=== PATIENT | male | born 1965 | race Caucasian/White ===

== ENCOUNTER 2021-12-16 06:27 | Outpatient (CLI) | payer OTHER, SELFPAY ==
--- NOTE | 2021-12-16 06:39 | MRI_ITS ---
STUDY: MRI LEFT SHOULDER REASON FOR EXAM: Decreased range of motion of the left shoulder after left shoulder injury over a month ago. TECHNIQUE: Standardized fat and water weighted pulse sequences were obtained in all 3 orthogonal planes. COMPARISON: None. FINDINGS: There is mild supraspinatus tendinosis and a small non retracted full-thickness tear of the distal supraspinatus tendon at the greater tuberosity insertion (fat-suppressed T2 coronal image 7) measuring 0.2 cm in length. There is infraspinatus tendinosis (T2 sagittal image 15) without discrete tendon tear. Normal subscapularis tendon. Normal teres minor tendon. Normal supraspinatus muscle. Normal infraspinatus muscle. Normal subscapularis muscle. Normal teres minor muscle. There is a very small glenohumeral joint effusion. Normal humeral head and visualized proximal humerus. Normal biceps labral complex. Normal intracapsular long biceps tendon. Normal labrum. Normal capsulo- ligamentous complex. There is mild acromioclavicular arthrosis without substantial undersurface osteophytes (T2 sagittal image 6). There is a Type I morphology (flat undersurface), with a neutral orientation. There is a small volume of subacromial-subdeltoid bursal fluid. Normal visualized coracohumeral and coracoacromial ligaments. Normal deltoid muscle. Normal trapezius muscle. MRI/Upper Ext Joint Only(Routine) IMPRESSION: Small full-thickness tear and mild tendinosis of the supraspinatus tendon. Infraspinatus tendinosis. Mild acromioclavicular arthrosis. Glenohumeral joint fluid communicating with the subacromial-subdeltoid bursa. Electronically Signed: Troy Jorge MD at 8:31 EDT ,
== END 2021-12-16 23:59 | disposition home or self-care (01) ==
LOC: MRI 06:32
PROVIDERS: PCP Family Medicine; Visit Provider Family Medicine
DX: S40.012A Contusion of left shoulder, initial encounter (principal); S43.402A Unspecified sprain of left shoulder joint, initial encounter; S33.5XXA Sprain of ligaments of lumbar spine, initial encounter; S20.224A Contusion of middle back wall of thorax, initial encounter
CPT/HCPCS: 73221

== ENCOUNTER 2023-11-02 13:41 | Emergency (ER) | payer BC, SELFPAY ==
[2023-11-02] VITALS (41 sets, daily range): BP systolic 111–154; BP diastolic 61–128; PULSE 63–97; RESP 10–23; TEMP 36.4; O2SAT 93–100; BMI 34.0
--- NOTE | 2023-11-02 14:10 | RAD_ITS ---
STUDY: X-RAY CHEST REASON FOR EXAM: Male, 58 years old. Chest pain TECHNIQUE: Single AP portable view of the chest. COMPARISON: Comparison is made with prior study dated November 04, 2014. FINDINGS: EKG electrodes are seen. The lungs are clear and expanded. There is no demonstrated pleural abnormality. Normal size heart. Normal mediastinum and dwayne. Normal visualized pulmonary arteries. Normal visualized aortic arch and descending thoracic aorta. There are diffuse degenerative changes of the visualized thoracic spine. Normal visualized ribs, clavicles, and shoulders. There is no demonstrated abnormality of the visualized soft tissue structures of the upper abdomen. RAD/Chest 1 View (Portable) IMPRESSION: No acute abnormality is seen. Stable examination. Electronically Signed: Kumar Finch MD at 14:30 EST ,
[2023-11-02 14:17] LABS: Absolute Lymphocyte Count 1.24 X10^3/uL (0.83-4.51); Absolute Neutrophil Count 3.8 X10^3/uL (2.0-7.7); Basophil# 0.02 X10^3/uL; Basophil% 0.4 % (0-1); Eosinophil# 0.11 X10^3/uL; Eosinophils% 1.9 % (0-5); Hemoglobin 12.5 g/dL (13.0-16.5); Lymphocyte # 1.24 X10^3/ul (0.83-4.51); Lymphocyte % 21.9 % (19-41); Mean Corp Hgb Conc 34.7 g/dL (32-36); Mean Corpuscular Hgb 31.1 pg (27.0-32.0); Mean Corpuscular Volume 89.6 fL (80-94); Mean Platelet Vol. 9.4 fl (6.2-12.0); Monocyte# 0.43 X10^3/uL; Monocyte% 7.6 % (0-10); NRBC Flagged by Analyzer 0 % (0-5); Neutrophil # 3.84 X10^3/uL (2.7-7.7); Platelet Count 185 K/mm3 (150-450); Red Blood Count 4.02 M/mm3 (4.6-6.2); White Blood Count 5.7 K/mm3 (4.4-11.0)
--- NOTE | 2023-11-02 14:19 | ED.VIS.CHEST ---
HPI History of Present Illness Chief Complaint: Chest Pain Narrative Narrative: 58-year-old male presenting with chest pain. States he has a history of [place], cardiac stents, hyperlipidemia. He states that today while he was at work he took his lunch break at about 1230 in the [employer] truck and started to feel retrosternal chest pressure. He states he had not eaten anything and he was only sipping water. He states that he took a nitroglycerin pill which did not help. He states he took another and then walked over to his bosses office with that. He states he was not feeling well. States EMS was called he was given nitroglycerin and aspirin and route. Patient states that this feels like his previous AZ. He initially stated his pain was down to a 1/10 when I saw him but then he said it wavers between 3/10 and 10/04. He states it is not a chest pressure or chest tightness. He states it is not a sharp pain but he cannot describe what kind of pain it is. He states he was sweaty and nauseous when the pain initiated but is not sweaty and nauseous now. Patient states his primary care md is at [place] and he states he had a cardiac catheterization in June which showed 60% blockage of something but is not sure what it is. He states he can medically manage at did not do another cardiac stent [facility] Home Medications Sulfasal-Azine 500 mg PO BID 04/23/14 [History Last Taken Unknown] aspirin 81 mg chewable tablet 81 mg PO DAILY HEART HEALTH 04/23/14 [History Last Taken Unknown] chlordiazepoxide-clidinium 5 mg-2.5 mg capsule 2.5 mg PO 4X/DAY STOMACH/INTESTINES 04/23/14 [History Last Taken Unknown] citalopram 20 mg tablet 40 mg PO DAILY DEPRESSION 04/23/14 [History Last Taken Unknown] clobetasol 0.05 % topical ointment 1 applic topical BID SWELLING/ITCHING 04/23/14 [History Last Taken Unknown] diclofenac sodium 75 mg tablet,delayed release 75 mg PO BIDCM INFLAMMATION 04/23/14 [History Last Taken Unknown] omeprazole 20 mg capsule,delayed release 20 mg PO BID GERD 04/23/14 [History Last Taken Unknown] rosuvastatin 20 mg tablet (Crestor) 20 mg PO QHS CHOLESTEROL 07/30/14 [History Last Taken Unknown] ferrous sulfate 325 mg (65 mg iron) tablet (Iron (ferrous sulfate)) 65 mg PO DAILY SUPPLEMENT 07/04/14 [History Last Taken Unknown] metoprolol succinate 25 mg tablet,extended release 24 hr 12.5 mg PO DAILY BLOOD PRESSURE 11/02/23 [History Last Taken Unknown] nitroglycerin 0.4 mg sublingual tablet 0.4 mg sublingual Q5M PRN CHEST PAIN 11/02/23 [History Last Taken Unknown] pantoprazole 40 mg tablet,delayed release 40 mg PO DAILY GERD 11/02/23 [History Last Taken Unknown] pramipexole 0.5 mg tablet 0.5 mg PO DAILY [place] 11/02/23 [History Last Taken Unknown] Allergy/AdvReac Type Severity Reaction Status Date / Time midazolam [From Versed] AdvReac Mild hiccups Verified 11/02/23 13:41 Social History Smoking Status: Never smoker ROS ROS ED Constitutional Constitutional ED: Reports sweats; Denies chills or fever(s) Eyes Eyes: Denies blurry vision or change in vision ENT ENT ED: Denies ear pain or sore throat Cardiovascular Cardiovascular: Reports chest pain; Denies palpitations or racing heartbeat Respiratory/Chest Respiratory/Chest: Reports dyspnea; Denies cough or sputum Gastrointestinal Gastrointestinal: Denies abdominal pain, constipation, diarrhea, nausea or vomiting Genitourinary Genitourinary ED: Denies dysuria, hematuria or urinary frequency Musculoskeletal Musculoskeletal: Denies arthralgias, myalgias or neck pain Integumentary Denies abscess, Abrasions or rash Neurologic Neurologic: Denies headache(s), paresthesias or weakness Psychiatric Psychiatric: Denies anxiety, depression, suicidal ideation or suicidal thoughts Endocrine Endocrinology: Denies polydipsia or polyuria EXAM Physical Exam Const Vital Signs: 11/02/23 13:42 11/02/23 13:44 11/02/23 14:08 Temperature 97.5 F L Temperature Source Temporal Pulse Rate 74 Respiratory Rate 12 Respiratory Effort Normal Non-Labored Blood Pressure 145/128 H Blood Pressure Mean 133 Pulse Ox 96 Oxygen Delivery Method Room Air Room Air 11/02/23 14:49 11/02/23 13:59 11/02/23 14:00 Temperature Temperature Source Pulse Rate 72 75 79 Respiratory Rate 10 L 13 14 Respiratory Effort Blood Pressure 142/81 H 126/79 H Blood Pressure Mean 101 94 Pulse Ox 96 97 95 Oxygen Delivery Method Room Air 11/02/23 14:10 11/02/23 14:15 11/02/23 14:20 Temperature Temperature Source Pulse Rate 82 74 78 Respiratory Rate 17 14 16 Respiratory Effort Blood Pressure 145/91 H Blood Pressure Mean 107 Pulse Ox 97 95 96 Oxygen Delivery Method 11/02/23 14:30 11/02/23 14:40 11/02/23 14:45 Temperature Temperature Source Pulse Rate 74 74 79 Respiratory Rate 14 12 12 Respiratory Effort Blood Pressure 128/86 H 142/81 H Blood Pressure Mean 98 98 Pulse Ox 97 98 96 Oxygen Delivery Method 11/02/23 14:50 11/02/23 15:00 11/02/23 15:10 Temperature Temperature Source Pulse Rate 79 72 79 Respiratory Rate 14 17 16 Respiratory Effort Blood Pressure 128/87 H Blood Pressure Mean 99 Pulse Ox 96 98 97 Oxygen Delivery Method 11/02/23 15:15 11/02/23 15:20 11/02/23 15:30 Temperature Temperature Source Pulse Rate 79 97 75 Respiratory Rate 14 22 H 16 Respiratory Effort Blood Pressure 132/91 H 154/89 H Blood Pressure Mean 104 104 Pulse Ox 96 97 97 Oxygen Delivery Method 11/02/23 15:40 11/02/23 15:45 11/02/23 15:50 Temperature Temperature Source Pulse Rate 80 63 79 Respiratory Rate 15 12 17 Respiratory Effort Blood Pressure 122/61 H Blood Pressure Mean 81 Pulse Ox 97 96 96 Oxygen Delivery Method 11/02/23 16:00 11/02/23 16:10 11/02/23 16:15 Temperature Temperature Source Pulse Rate 75 75 Respiratory Rate 14 13 Respiratory Effort Blood Pressure 120/75 132/76 H Blood Pressure Mean 89 93 Pulse Ox 96 94 Oxygen Delivery Method 11/02/23 16:20 11/02/23 16:30 11/02/23 16:40 Temperature Temperature Source Pulse Rate 77 75 74 Respiratory Rate 14 13 14 Respiratory Effort Blood Pressure 127/90 H Blood Pressure Mean 102 Pulse Ox 98 97 97 Oxygen Delivery Method 11/02/23 16:45 11/02/23 16:50 11/02/23 17:00 Temperature Temperature Source Pulse Rate 77 79 77 Respiratory Rate 13 15 12 Respiratory Effort Blood Pressure 126/84 H 111/78 Blood Pressure Mean 96 89 Pulse Ox 93 96 97 Oxygen Delivery Method 11/02/23 17:10 11/02/23 17:15 11/02/23 17:20 Temperature Temperature Source Pulse Rate 82 75 69 Respiratory Rate 15 11 L 11 L Respiratory Effort Blood Pressure 146/88 H Blood Pressure Mean 101 Pulse Ox 96 98 96 Oxygen Delivery Method 11/02/23 17:30 11/02/23 17:40 11/02/23 17:45 Temperature Temperature Source Pulse Rate 76 82 72 Respiratory Rate 13 23 H 11 L Respiratory Effort Blood Pressure 131/85 H 117/85 H Blood Pressure Mean 100 96 Pulse Ox 98 96 97 Oxygen Delivery Method 11/02/23 17:50 11/02/23 18:00 11/02/23 18:10 Temperature Temperature Source Pulse Rate 79 74 74 Respiratory Rate 12 18 11 L Respiratory Effort Blood Pressure 130/81 H Blood Pressure Mean 95 Pulse Ox 97 95 96 Oxygen Delivery Method 11/02/23 18:15 11/02/23 18:20 11/02/23 18:30 Temperature Temperature Source Pulse Rate 79 74 73 Respiratory Rate 12 16 12 Respiratory Effort Blood Pressure 143/90 H 141/84 H Blood Pressure Mean 103 103 Pulse Ox 97 96 100 Oxygen Delivery Method 11/02/23 18:40 Temperature Temperature Source Pulse Rate 73 Respiratory Rate 18 Respiratory Effort Blood Pressure Blood Pressure Mean Pulse Ox 97 Oxygen Delivery Method General Appearance ED: Negative for pallor HEENT Reports normocephalic and head/scalp atraumatic Eyes PERRL and EOMs intact bilaterally Neck no lymphadenopathy and supple Resp normal respiratory effort and clear to auscultation bilaterally Auscultation: Negative for rales, rhonchi or wheezes Cardio regular rate and regular rhythm Narrative: Deferred Extremity normal to inspection General Extremety ED: Negative for edema or tenderness General Extremity: Negative for edema Neuro oriented x3 and CN's II-XII intact bilaterally Sensorium / Orientation: alert Motor Exam: strength 5/5 throughout Psych mental status grossly normal Attitude: No agitated Skin no rashes or lesions noted and no wounds General Skin Exam: Negative for jaundice or pallor Heart Score History: Slightly/Non-Suspicious ECG: Normal Age: >45 - <65 years Risk Factors: >/= 3 Risk Factors or History of CAD Troponin: </= Normal Limit Score: 3 MDM MDM MDM Narrative Medical decision making narrative: Patient presenting with chest pain. Differential includes ACS, CHF, pneumonia, pneumothorax, PE however patient is PERC negative and has no risk factors. CBC was obtained to assess evidence of, hemoglobin, nitrates BMP to assess renal function, electrolytes, kidney dose, anion gap. High-sensitivity troponin EKG to assess for ischemia/dysrhythmia. Chest x-ray to rule out pneumonia. EKG on my interpretation shows a normal sinus rhythm with a ventricular rate of 72 bpm outside ischemic change or ectopy. Chest x-ray my interpretation shows no acute process. High-sensitivity troponin is 4. Delta troponin is 5. Patient was given a dose of morphine but he has been pain-free throughout the last couple hours. I do not believe it is be admitted. We did discuss this. He feels comfortable being discharged home to follow-up with his cardiology team. Return precautions discussed. Impression: 1. Chest pain Lab Data Attestation: I reviewed the patient's lab results. Labs: Laboratory Results - last 24 hr 11/02/23 11/02/23 13:45 15:41 WBC 5.7 RBC 4.02 L Hgb 12.5 L Hct 36.0 L MCV 89.6 MCH 31.1 MCHC 34.7 RDW Std Deviation 39.0 RDW Coeff of Semaj 12.0 Plt Count 185 MPV 9.4 Immature Gran % (Auto) 0.200 Neut % (Auto) 68.0 Lymph % (Auto) 21.9 [place] % (Auto) 7.6 Eos % (Auto) 1.9 Baso % (Auto) 0.4 Absolute Neuts (auto) 3.8 Absolute Lymphs (auto) 1.24 Nucleated RBC % 0 Sodium 142 Potassium 3.6 Chloride 111 H Carbon Dioxide 27.0 Anion Gap 4 L BUN 17 Creatinine 0.84 Estim Creat Clear Calc 113.56 Est GFR (MDRD) Af Amer 122 Est GFR (MDRD) Non-Af 101 BUN/Creatinine Ratio 20.3 H Glucose 90 Calcium 8.9 Troponin I High Sens 4 5 Radiography Diagnostic Testing: Clinical Impression(s) from Imaging Studies Chest X-Ray 11/02/23 14:10 IMPRESSION: No acute abnormality is seen. Stable examination. Electronically Signed: Kumar Finch MD at 14:30 EST , Discharge Plan Triage Chief Complaint: Chest Pain ED Provider: Paul Bui Dx/Rx/DC Orders Instructions: ED Chest Pain, Uncertain Cause Prescriptions: No Action citalopram 20 MG tablet 40 mg PO DAILY omeprazole 20 MG capsule 20 mg PO BID chlordiazepoxide-clidinium 2.5 MG capsule 2.5 mg PO 4X/DAY aspirin 81 MG tablet,chewable 81 mg PO DAILY diclofenac sodium 75 MG tablet 75 mg PO BIDCM clobetasol 1 APPLIC ointment 1 applic topical BID rosuvastatin [Crestor] 20 MG tablet 20 mg PO QHS Sulfasal-Azine 500 mg PO BID ferrous sulfate [Iron (ferrous sulfate)] 325 MG tablet 65 mg PO DAILY metoprolol succinate 25 mg tablet extended release 24 hr 12.5 mg PO DAILY nitroglycerin 0.4 mg tablet, sublingual 0.4 mg sublingual Q5M PRN (Reason: CHEST PAIN ) Rx Instructions: DISSOLVE 1 TABLET UNDER THE TONGUE EVERY 5 MINUTES NEEDED FOR CHEST PAIN. pantoprazole 40 mg tablet,delayed release (DR/EC) 40 mg PO DAILY pramipexole 0.5 mg tablet 0.5 mg PO DAILY Primary Care Provider: Paras Denton Referrals: Paras Denton MD [Primary Care Provider] - Disposition Disposition: Home, Self Care Discharge Date/Time: 11/02/23 18:48
[2023-11-02 14:38] LABS: Anion Gap 4 (5-15); BUN 17 mg/dL (7-18); BUN/Creat Ratio 20.3 RATIO (10-20); Calcium,Total 8.9 mg/dL (8.5-10.1); Chloride 111 mmol/L (98-107); Creatinine, Serum 0.84 mg/dL (0.70-1.30); EST Glomerular Filtration Rate 101 mL/min (>60); Est Glom Filt Rate - Afr Amer 122 mL/min (>60); Estimated Creatinine Clearance 113.56 ml/min; Glucose 90 mg/dL (74-106); Potassium 3.6 mmol/L (3.5-5.1); Sodium Level 142 mmol/L (136-145); Troponin-I HS (w/2H Reflex) 4 pg/mL (3.0-78.0)
[2023-11-02] MEDS: Ondansetron 4 MG/2 ML Vial IV (14:38)
[2023-11-02] MEDS: Morphine 4 MG/ML Syringe IV (14:39)
[2023-11-02 16:05] LABS: Reflex Troponin-HS? (from REC) Y
--- OUTSIDE RECORDS SUMMARY | 2023-11-02 16:42 | XMS RPT_ITS | CCD ---
Author Name Unknown Address [address] [place] [address] Organization [facility] Care Team Providers Care Associate Professor Of Communication Name Role Phone PROVIDER, UNKNOWN Unavailable Unavailable Paras Lopez Unavailable Unavailable Rena Vivar Unavailable Unavailable Paras Lopez MD Primary Care Provider [phone] Paras Lopez MD Primary Care Provider [phone] Paras Lopez MD Primary Care Provider [phone] Paras Lopez MD Primary Care Provider [phone] PARAS LOPEZ Primary Care Unavailable XAVI MCCARTHY Referring Unavailabl e HIMANSHU, MELYSSA Referring Unavailable PARAS LOPEZ Primary Care Unavailable XAVI MCCARTHY Referring UnavailPARAS Sauceda Primary Care Unavailable XAVI MCCARTHY Referring UnavailPARAS Sauceda Primary Care Unavailable HIMANSHU, MELYSSA Referring Unavailable PARAS LOPEZ Primary Care Unavailable PARAS LOPEZ Attending Unavailable CHIN LOPEZ Admitting Unavailable RENA MARKS Consulting Unavailable PARAS LOPEZ Primary Care Unavailable IRAIS HATCH Referring Unavailable RIVAS ROJAS Attending Unavailmaddy e PARAS LOPEZ Primary Care Unavailable XAVI MCCARTHY Attending Unavailabl e PARAS LOPEZ Primary Care Unavailable JAVIER ROLDAN Attending Unavailable PARAS LOPEZ Primary Care Unavailable CHOUDHURY, MELYSSA Referring Unavailable HIMANSHU, MELYSSA Attending Unavailable PARAS LOPEZ Primary Care Unavailable Allergies Allergy Classification Reported Allergen(s) Allergy Type Date of Onset Reaction(s) Facility (19 sources) Midazolam; Translations: [MIDAZOLAM] Drug Allergy 04-23-2015 Contraindicatio n-Medical Surgical [facility] Medications Current Medications Medication Drug Class(es) Dates Sig (Normalized) Sig (Original) diclofenac sodium 75 mg delayed release oral tablet (11 sources) Nonsteroidal Anti-inflammatory Drug Start: 08-30-2021 End: 01-29-2023 diclofenac, EC, (VOLTAREN) 75 mg EC tablet perflutren lipid microspheres 1.3 mL in NaCl (PF) 0.9% 10 mL injection (DEFINITY) (9 sources) Start: 05-12-2021 End: 08-11-2022 perflutren lipid microspheres 1.3 mL in NaCl (PF) 0.9% 10 mL injection (DEFINITY) pramipexole dihydrochloride 0.5 mg oral tablet (18 sources) Nonergot Dopamine Agonist Start: 12-20-2022 End: 12-20-2023 take 1 tablet by mouth once daily at bedtime pramipexole (MIRAPEX) 0.5 mg tablet Take 1 tablet by mouth daily at bedtime. 90 tablet 3 12/20/2022 12/20/2023 Active Completed/Discontinued Medications Medication Drug Class(es) Dates Sig (Normalized) Sig (Original) aspirin 81 mg oral tablet (17 sources) Platelet Aggregation Inhibitor, Nonsteroidal Anti-inflammatory Drug take 1 tablet by mouth once daily Aspirin 81 mg ORAL Tab Take 81 mg by mouth once daily. 0 Active Problems Active Problems Problem Classification Problem Date Documented Date Episodic/Chronic Coronary atherosclerosis and other heart disease (20 sources) Coronary atherosclerosis; Translations: [Atherosclerotic heart disease of [place] coronary artery without angina pectoris] Onset: 06-27-2012 Chronic Disorders of lipid metabolism (20 sources) Mixed hyperlipidemia; Translations: [Mixed hyperlipidemia] Onset: 06-13-2019 06-13-2019 Chronic Esophageal disorders (20 sources) Gastroesophageal reflux disease; Translations: [Gastro-esophageal reflux disease without esophagitis] Onset: 06-27-2012 08-02-2016 Chronic External Injury - Natural / Environment (2 sources) Exposure to other specified factors, initial encounter; Translations: [Exposure to other specified factors, initial encounter] Onset: 02-17-2018 Nutritional deficiencies (6 sources) Vitamin D deficiency; Translations: [Vitamin D deficiency, unspecified] Onset: 05-12-2023 Chronic Open wounds of extremities (2 sources) Laceration without foreign body of right hand, initial encounter; Translations: [Laceration without foreign body of right hand, init encntr] Onset: 02-17-2018 Episodic Osteoarthritis (17 sources) Disorder of joint of shoulder region; Translations: [Primary osteoarthritis, unspecified shoulder] Onset: 01-29-2015 01-29-2015 Chronic Other hereditary and degenerative nervous system conditions (20 sources) Restless legs; Translations: [Restless legs syndrome] Onset: 12-20-2021 Chronic Residual codes; unclassified (20 sources) Obstructive sleep apnea syndrome; Translations: [Obstructive sleep apnea (adult) (pediatric)] Onset: 07-12-2013 Chronic Residual codes; unclassified (18 sources) Daytime somnolence; Translations: [Other hypersomnia] Onset: 06-13-2019 Chronic Residual codes; unclassified (1 source) Sleep deprivation; Translations: [Sleep deprivation] Episodic Spondylosis; intervertebral disc disorders; other back problems (20 sources) Arthropathy of cervical spine facet joint; Translations: [Spondylosis without myelopathy or radiculopathy, cervical region] Onset: 11-14-2014 11-14-2014 Chronic Past or Other Problems Problem Classification Problem Date Documented Da te Episodic/Chronic Conditions associated with dizziness or vertigo (17 sources) Lightheadedness; Translations: [Dizziness and giddiness] Onset: 03-24-2014 03-24-2014 Episodic Coronary atherosclerosis and other heart disease (18 sources) History of percutaneous coronary intervention; Translations: [Coronary angioplasty status] Onset: 06-27-2012 08-02-2016 Episodic Malaise and fatigue (17 sources) Fatigue; Translations: [Other fatigue] Onset: 07-12-2013 07-12-2013 Episodic Nonspecific chest pain (14 sources) Chest pain; Translations: [Other chest pain] Onset: 01-29-2023 01-29-2023 Episodic Nutritional deficiencies (18 sources) Iron deficiency; Translations: [Iron deficiency] Onset: 10-15-2019 10-15-2019 Episodic Other lower respiratory disease (17 sources) Snoring; Translations: [Snoring] Onset: 07-12-2013 07-12-2013 Episodic Other non-traumatic joint disorders (17 sources) Soft tissue lesion of shoulder region; Translations: [Other specified joint disorders, unspecified shoulder] Onset: 01-29-2015 01-29-2015 Episodic Other non-traumatic joint disorders (17 sources) Shoulder joint pain; Translations: [Pain in unspecified shoulder] Onset: 01-29-2015 01-29-2015 Episodic Spondylosis; intervertebral disc disorders; other back problems (20 sources) Neck pain; Translations: [Cervicalgia] Onset: 11-14-2014 11-14-2014 Episodic Syncope (17 sources) Vasovagal syncope; Translations: [Syncope and collapse] Onset: 03-24-2014 03-24-2014 Episodic Results Test Name Value Interpretation Reference Range Facil ity Vital Signs Date Time Vital Sign Value Performing Clinician Scott haynes 08-30-2023 14:57-0500 Body height 177.8 cm Xavi [place] DO Work Phone: [facility] 08-30-2023 14:57-0500 Body weight 97.9 kg Xavi [place] DO Work Phone: [facility] 08-30-2023 14:57-0500 Diastolic blood pressure 64 mm[Hg] Xavi [place] DO Work Phone: [facility] 08-30-2023 14:57-0500 Heart rate 89 /min Xavi [place] DO Work Phone: [facility] 08-30-2023 14:57-0500 SaO2% (BldA) [Mass fraction] 97 % Xavi [place] DO Work Phone: [facility] 08-30-2023 14:57-0500 Systolic blood pressure 118 mm[Hg] Xavi [place] DO Work Phone: [facility] 05-04-2023 15:33-0400 Body height 177.8 cm Javier Roldan APRN.DECORATING INSTRUCTOR Work Phone: [facility] 05-04-2023 15:33-0400 Body weight 97.98 kg Javier Roldan APRN.DECORATING INSTRUCTOR Work Phone: [facility] 05-04-2023 15:33-0400 Diastolic blood pressure 64 mm[Hg] Javier Roldan APRN.DECORATING INSTRUCTOR Work Phone: [facility] 05-04-2023 15:33-0400 Heart rate 82 /min Javier Roldan APRN.DECORATING INSTRUCTOR Work Phone: [facility] 05-04-2023 15:33-0400 SaO2% (BldA) [Mass fraction] 96 % Javier Roldan EVENT PLANNING MANAGER.DECORATING INSTRUCTOR Work Phone: [facility] 05-04-2023 15:33-0400 Systolic blood pressure 112 mm[Hg] Javier Jamar EVENT PLANNING MANAGER.DECORATING INSTRUCTOR Work Phone: [facility] 02-22-2022 15:28-0400 Body weight 99.79 kg Melyssa Choudhury EVENT PLANNING MANAGER.DECORATING INSTRUCTOR Work Phone: [facility] 02-22-2022 15:28-0400 Diastolic blood pressure 65 mm[Hg] Melyssa Choudhury EVENT PLANNING MANAGER.DECORATING INSTRUCTOR Work Phone: [facility] 02-22-2022 15:28-0400 Heart rate 99 /min Melyssa Choudhury EVENT PLANNING MANAGER.DECORATING INSTRUCTOR Work Phone: [facility] 02-22-2022 15:28-0400 SaO2% (BldA) [Mass fraction] 100 % Melyssa Choudhury EVENT PLANNING MANAGER.DECORATING INSTRUCTOR Work Phone: [facility] 02-22-2022 15:28-0400 Systolic blood pressure 102 mm[Hg] Melyssa Choudhury EVENT PLANNING MANAGER.DECORATING INSTRUCTOR Work Phone: [facility] 12-20-2021 13:26-0400 Body weight 99.79 kg Melyssa Choudhury EVENT PLANNING MANAGER.DECORATING INSTRUCTOR Work Phone: [facility] 12-20-2021 13:26-0400 Diastolic blood pressure 75 mm[Hg] Melyssa Choudhury EVENT PLANNING MANAGER.DECORATING INSTRUCTOR Work Phone: [facility] 12-20-2021 13:26-0400 Heart rate 102 /min Melyssa Choudhury EVENT PLANNING MANAGER.DECORATING INSTRUCTOR Work Phone: [facility] 12-20-2021 13:26-0400 SaO2% (BldA) [Mass fraction] 97 % Melyssa Choudhury EVENT PLANNING MANAGER.DECORATING INSTRUCTOR Work Phone: [facility] 12-20-2021 13:26-0400 Systolic blood pressure 115 mm[Hg] Melyssa Choudhury APRN.CNP Work Phone: [facility] Encounters Encounter Date Encounter Type Care Provider Facility Start: 09-07-2023 ambulatory Xavi Mccarthy DO Work Phone: Cardiology Procedures Date Procedure Procedure Detail Performing Clinician Start: 08-29-2023 Lipid 1996 panel - S faith or Plasma Kiel Gaffney RN Start: 05-12-2023 Lipid 1996 panel - S faith or Plasma Melyssa Choudhury APRN.CNP Work Phone: Start: 12-20-2021 Adult depression screening assessment Melyssa Choudhury APRN.CNP Work Phone: Plan of Treatment Date Care Activity Detail Author Start: 08-29-2028 Lipid 1996 panel - Serum or Plasma Lipid Screening [facility] Start: 08-29-2028 Lipid panel Lipid Screening [facility] Start: 05-12-2028 Lipid 1996 panel - Serum or Plasma Lipid Screening [facility] Start: 02-18-2028 Urine microalbumin profile DTaP,Tdap,Td Vaccine (2 - Td or Tdap) [facility] Start: 05-26-2027 LIPID SCREEN LIPID SCREEN [facility] Start: 01-31-2026 DIABETES SCREEN DIABETES SCREEN [facility] Start: 01-31-2026 Diabetes Screening Diabetes Screening [facility] Start: 01-28-2026 DIABETES SCREEN DIABETES SCREEN [facility] Start: 07-10-2025 LIPID SCREEN LIPID SCREEN [facility] Start: 01-04-2025 DIABETES SCREEN DIABETES SCREEN [facility] Start: 08-29-2024 Hepatitis B surface antibody level LDL Cholesterol [facility] Start: 05-12-2024 Hepatitis B surface antibody level LDL Cholesterol [facility] Start: 11-29-2023 End: 02-28-2024 Hepatic function 2000 panel - Serum or Plasma HEPATIC FUNCTION PNL Lab Routine Mixed hyperlipidemia Expected: 11/29/2023, Expires: 02/28/2024 [facility] Work Phone: Payers Date Payer Category Payer Unknown 2015 Unknown [employer] PPO OOS [id number] 2015-Present [phone] [address] [place] [address] PPO [id number] 2015 Unknown [id number] Social History Date Type Detail Facility Start: 12-26-2011 End: 12-20-2022 Tobacco smoking status NHIS Never smoked tobacco [facility] Start: 12-26-2011 End: 12-20-2022 Tobacco use and exposure Former smokeless tobacco user [facility] End: 02-09-1985 History of tobacco use Snuff User [facility] End: 02-09-1985 History of tobacco use Chews Tobacco [facility] Start: 12-20-2021 End: 08-30-2023 Alcohol intake Current non-drinker of alcohol (finding) [facility] Start: 1965 Sex Assigned At Not on file [facility] Start: 12-10-2021 End: 05-26-2022 Exposure to SARS-CoV-2 (event) Not sure [facility] Start: 01-29-2023 End: 05-04-2023 History of Social function [facility] Start: 01-29-2023 End: 05-04-2023 Tobacco use panel [facility] Adult Depression Scr eening Assessment 1 [facility] Clinical Notes 01-01-2015 to 09-07-2023 Telephone Encounter - Kiel Gaffney RN - 09/07/2023 1:05 PM Xavi Low DO - 08/30/2023 2:54 PM ESTTelephone Encounter - Kiel Gaffney RN - 08/30/2023 8:13 AM EST Note Date & Type Note Facility 09-07-2023 Miscellaneous Notes Please advise Darin Mccarthy, I contacted the [employer] as you suggested and they would like for you to put in a referral so they could see why you suggested I see them. Hope that's Ok. Thanks Chin WEISS 08/30/23 Shari He is having some recurrences of chest pain but has a lot of musculoskeletal problems due to his psoriatic arthritis. I did give him sublingual nitroglycerin to take on a as needed basis and will let me know if he continues to have problems and would consider stenting despite a normal nuclear stress test. He will discontinue metoprolol since he is only taking 12.5 mg daily and continues to have some problems with hypotension. documented in this encounter [facility] 08-30-2023 Note HNO ID: [id number] Author: Xavi Mccarthy DO Service: ? Author Type: Physician Type: Progress Notes Filed: 08/30/2023 3:37 PM Note Text: [facility] [place] Department of Cardiovascular Medicine SECTION OF [facility] CARDIOLOGY/[facility] OUTPATIENT VISIT DATE August 30, 2023 OUTPATIENT VISIT TYPE ESTABLISHED PATIENT Name: Chin Rodrigez : 1965 Date: August 30, 2023 PRIMARY CARE PHYSICIAN: Paras Lopez ([facility]) [address] [place] [address] REFERRING PHYSICIAN: No referring provider defined for this encounter. CHIEF COMPLAINT: Patient presents with: Cardiology Follow Up : No new cardiac concerns IMPRESSION / PLAN: 1. Coronary artery disease with history of myocardial infarction in 2009 and stent placement to the LAD, 60% mid circumflex artery stenosis with patent stent placement to left anterior descending artery and circumflex in 2009 with recurrent chest pain. Patient underwent repeat cardiac catheterization during hospitalization to [facility] on January 28, 2023 and found to have an intermediate stenosis of the circumflex artery on February 13, 2023 which was normal. He is having some recurrences of chest pain but has a lot of musculoskeletal problems due to his psoriatic arthritis. I did give him sublingual nitroglycerin to take on a as needed basis and will let me know if he continues to have problems and would consider stenting despite a normal nuclear stress test. He will discontinue metoprolol since he is only taking 12.5 mg daily and continues to have some problems with hypotension. 2. Hyperlipidemia. Patient's most recent LDL was 88 on August 29, 2023 therefore will increase rosuvastatin to 20 mg daily and recheck lipids in 3 months. 3. History of psoriatic arthritis. I recommended following up with bag checker. Follow Up Instructions Return in about 6 months (around 02/29/2024). ORDERS FOR TODAY'S VISIT: Office Visit on 08/30/23 HEPATIC FUNCTION PNL LIPID PANEL BASIC rosuvastatin (CRESTOR) 20 mg tablet nitroglycerin sublingual (NITROSTAT) 0.4 mg SL tablet HISTORY OF PRESENT ILLNESS: Chin Rodrigez is an 58 year old male with a past history of myocardial infarction and stent placement to left anterior descending artery and recent complaint of recurrent chest pain prompting cardiac catheterization in January 2023 presents today with his for follow-up. Does continue to have some recurrences of chest pain but does have a lot of musculoskeletal symptoms as well. Recent nuclear stress test in January 2023 was normal. PAST MEDICAL HISTORY Diagnosis Date CAD S/P percutaneous coronary angioplasty Congestive heart failure (HCC) Dyslipidemia Fracture Heart attack (HCC) ANANDA on CPAP Pneumonia 09/30/2012 Restless legs syndrome (RLS) PAST SURGICAL HISTORY Procedure Laterality Date APPENDECTOMY HX HEART SURGERY HX 2 stents SOCIAL HISTORY Social History Tobacco Use Smoking status: Never Smokeless tobacco: Former Types: Snuff, Chew Quit date: 02/09/1985 Substance Use Topics Alcohol use: No Drug use: No History reviewed. No pertinent family history. ALLERGIES: ALLERGIES Allergen Reactions Versed [Midazolam] Contraindication-Medical Surgical Pt. Has hiccups after versed...Do not use for sedation when having Cervical injections MEDICATIONS: rosuvastatin (CRESTOR) 20 mg tablet Take 1 tablet by mouth once daily. nitroglycerin sublingual (NITROSTAT) 0.4 mg SL tablet Dissolve 1 tablet under the tongue every 5 minutes as needed for chest pain. pantoprazole DR (PROTONIX) 40 mg tablet Take 1 tablet by mouth DAILY (6 AM). cholecalciferol, Vitamin D3, (VITAMIN D3) 1,250 mcg (50,000 unit) cap capsule Take 1 capsule by mouth one time a week. pramipexole (MIRAPEX) 0.5 mg tablet Take 1 tablet by mouth daily at bedtime. CPAP Supplies: Settings 5 - 15 cm H2O, suitable mask per pt preference, chin strap, head gear, humidity, tubing, lifetime supplies. G47.33 ANANDA ferrous sulfate (IRON ORAL) Take 1 tablet by mouth daily at bedtime. Unsure of does it is OTC Aspirin 81 mg ORAL Tab Take 81 mg by mouth once daily. REVIEW OF SYSTEMS: GENERAL: Negative for: Weight loss or gain, Fever or Chills NECK: Negative for: Swelling, Pain, Stiffness RESPIRATORY: Negative for: Cough, Blood in Sputum GASTROINTESTINAL: Negative for: Trouble swallowing, Heartburn, Change in bowel habits, Blood in stool, Dark black stools MUSCULOSKELETAL: Negative for: Severe Muscle or joint pain, Stiffness , Joint swelling NEUROLOGIC/PSYCHIATRIC: Negative for: Paralysis, Numbness, Tingling, Tremor SKIN: Negative for: Rashes, Itching HEMATOLOGICAL/LYMPHATIC: Negative for: Easy bruising , Easy bleeding ENDOCRINE: Negative for: Heat or cold intolerance, Excessive sweating, Frequent urination All o (more content not included)... [facility] 08-30-2023 History of Presen t illness Narrative Images from the original note were not included. [facility] [place] Department of Cardiovascular Medicine SECTION OF [facility] CARDIOLOG[facility] OUTPATIENT VISIT DATE August 30, 2023 OUTPATIENT VISIT TYPE ESTABLISHED PATIENT Name: Chin Rodrigez : 1965 Date: August 30, 2023 PRIMARY CARE PHYSICIAN: Paras Lopez ([facility]) [address] [place] [address] REFERRING PHYSICIAN: No referring provider defined for this encounter. CHIEF COMPLAINT: Patient presents with: Cardiology Follow Up : No new cardiac concerns IMPRESSION / PLAN: 1. Coronary artery disease with history of myocardial infarction in 2010 and stent placement to the LAD, 60% mid circumflex artery stenosis with patent stent placement to left anterior descending artery and circumflex in 2009 with recurrent chest pain. Patient underwent repeat cardiac catheterization during hospitalization to [facility] on January 28, 2023 and found to have an intermediate stenosis of the circumflex artery on February 13, 2023 which was normal. He is having some recurrences of chest pain but has a lot of musculoskeletal problems due to his psoriatic arthritis. I did give him sublingual nitroglycerin to take on a as needed basis and will let me know if he continues to have problems and would consider stenting despite a normal nuclear stress test. He will discontinue metoprolol since he is only taking 12.5 mg daily and continues to have some problems with hypotension. 2. Hyperlipidemia. Patient's most recent LDL was 88 on August 29, 2023 therefore will increase rosuvastatin to 20 mg daily and recheck lipids in 3 months. 3. History of psoriatic arthritis. I recommended following up with bag checker. Follow Up Instructions Return in about 6 months (around 02/29/2024). ORDERS FOR TODAY'S VISIT: Office Visit on 08/30/23 HEPATIC FUNCTION PNL LIPID PANEL BASIC rosuvastatin (CRESTOR) 20 mg tablet nitroglycerin sublingual (NITROSTAT) 0.4 mg SL tablet HISTORY OF PRESENT ILLNESS: Chin Rodrigez is an 58 year old male with a past history of myocardial infarction and stent placement to left anterior descending artery and recent complaint of recurrent chest pain prompting cardiac catheterization in January 2023 presents today with his for follow-up. Does continue to have some recurrences of chest pain but does have a lot of musculoskeletal symptoms as well. Recent nuclear stress test in January 2023 was normal. PAST MEDICAL HISTORY Diagnosis Date CAD S/P percutaneous coronary angioplasty Congestive heart failure (HCC) Dyslipidemia Fracture Heart attack (HCC) ANANDA on CPAP Pneumonia 09/30/2012 Restless legs syndrome (RLS) PAST SURGICAL HISTORY Procedure Laterality Date APPENDECTOMY HX HEART SURGERY HX 2 stents SOCIAL HISTORY Social History Tobacco Use Smoking status: Never Smokeless tobacco: Former Types: Snuff, Chew Quit date: 02/09/1985 Substance Use Topics Alcohol use: No Drug use: No History reviewed. No pertinent family history. ALLERGIES: ALLERGIES Allergen Reactions Versed [Midazolam] Contraindication-Medical Surgical Pt. Has hiccups after versed...Do not use for sedation when having Cervical injections MEDICATIONS: rosuvastatin (CRESTOR) 20 mg tablet Take 1 tablet by mouth once daily. nitroglycerin sublingual (NITROSTAT) 0.4 mg SL tablet Dissolve 1 tablet under the tongue every 5 minutes as needed for chest pain. pantoprazole DR (PROTONIX) 40 mg tablet Take 1 tablet by mouth DAILY (6 AM). cholecalciferol, Vitamin D3, (VITAMIN D3) 1,250 mcg (50,000 unit) cap capsule Take 1 capsule by mouth one time a week. pramipexole (MIRAPEX) 0.5 mg tablet Take 1 tablet by mouth daily at bedtime. CPAP Supplies: Settings 5 - 15 cm H2O, suitable mask per pt preference, chin strap, head gear, humidity, tubing, lifetime supplies. G47.33 ANANDA ferrous sulfate (IRON ORAL) Take 1 tablet by mouth daily at bedtime. Unsure of does it is OTC Aspirin 81 mg ORAL Tab Take 81 mg by mouth once daily. REVIEW OF SYSTEMS: GENERAL: Negative for: Weight loss or gain, Fever or Chills NECK: Negative for: Swelling, Pain, Stiffness RESPIRATORY: Negative for: Cough, Blood in Sputum GASTROINTESTINAL: Negative for: Trouble swallowing, Heartburn, Change in bowel habits, Blood in stool, Dark black stools MUSCULOSKELETAL: Negative for: Severe Muscle or joint pain, Stiffness , Joint swelling NEUROLOGIC/PSYCHIATRIC: Negative for: Paralysis, Numbness, Tingling, Tremor SKIN: Negative for: Rashes, Itching HEMATOLOGICAL/LYMPHATIC: Negative for: Easy bruising , Easy bleeding ENDOCRINE: Negative for: Heat or cold intolerance, Excessive sweating, Frequent urination All other review of systems, per history of present illness. PHYSICAL EXAMINATION: BP 118/64 Pulse 89 Ht 177.8 cm (5' 10 ) Wt 97.9 kg (215 lb 13.3 oz) SpO2 97% BMI 30.97 kg/m Last 2 Encounter Wt Readings: Date: Wt: 05/04/2023 98 kg (216 lb) 01/28/2023 99.5 kg (219 lb 6.4 oz) General: Well appearing, in no acute distress. Skin: No clubbing, no cyanosis. Eyes: Extra ocular movements intact Oropharynx: No gross abnormalities Neck: No jugular venous distention, no carotid bruits, carotids have a normal upstroke, no palpable thyromegaly. Lungs: Clear to auscultation bilaterally, no wheezing or rhonchi. Heart: Regular rhythm, PMI not displaced, S1, S2, no S3, no S4, no murmur. Abdomen: Soft, nontender, bowel sounds normal, no palpable organomegaly, no bruits. Extremities: No peripheral edema . +2 distal pulses bilaterally. Neuro: Oriented to person, place and time, alert, cooperative. CARDIOVASCULAR MEDICINE TESTING: I have personally reviewed No Cardiovascular testing perfomed today. Xavi Mccarthy DO, [facility] Staff Television Cabinet Finisher Xavi and Maki Najera Dept. of Cardiovascular Medicine [facility] This document was generated using the assistance of voice recognition software. If there are any errors of spelling, grammar, syntax or meaning, please feel free to contact me directly at anytime. documented in this encounter [facility] 08-30-2023 Miscellaneous Notes Called PT and put in his my chart about LDL is 88 down from 146. Goal LDL is less than 70. If patient feels he can tolerate a 20mg dosage, I will send a new script if patient is agreeable. ----- Message from Xavi Mccarthy DO sent at 08/29/2023 4:26 PM EST ----- LDL is 88 down from 146. Goal LDL is less than 70. If patient feels he can tolerate a 20mg dosage, I will send a new script if patient is agreeable. documented in this encounter [facility] 08-04-2023 Miscellaneous Notes CATALINA: 3.28.23 In Person: 12.20. MD: 1.21.20 F/U: n/a Impression: G47.33 ANANDA (obstructive sleep apnea) (primary encounter diagnosis) G25.81 RLS (restless legs syndrome) E61.1 Iron deficiency E55.9 Vitamin D deficiency 57 yo male who presents for follow up for ANANDA on CPAP with use and benefits noted. He is treating RLS with Mirapex 0.25 mg with benefit, but some breakthrough symptoms noted. Will increase Mirapex to 0.5 mg and advise patient to follow up with Spine for management. Plan: - Continue Auto CPAP - Remember to clean your mask and equipment regularly, as directed. - You should be eligible for new supplies approximately every 3-6 months, depending on your insurance coverage. Contact your [employer] (DME) company for new supplies as needed. - Nonmedical therapy for restless legs syndrome includes : cold/warm compresses, warm/hot baths or showers, gentle massage, mild leg stretching at nighttime, or magnesium supplements ( 250- 1000 mg at nighttime daily). Mentally alerting activities help too. Note the caffeine, alcohol, nicotine, antidepressants, anti-nausea meds and antihistamines can cause or worsen symptoms. - Additional lab work - Mirapex 0.5 mg at night, refills submitted Follow up in 6 month(s). Melyssa Choudhury APRN.DECORATING INSTRUCTOR documented in this encounter [facility] 05-04-2023 Note HNO ID: [id number] Author: Javier Roldan APRN.DECORATING INSTRUCTOR Service: ? Author Type: Nurse Practitioner Type: Progress Notes Filed: 05/04/2023 5:01 PM Note Text: Heart and Vascular [place] Department of Cardiovascular Medicine SECTION OF CLINICAL CARDIOLOGY OUTPATIENT VISIT DATE May 04, 2023 OUTPATIENT VISIT TYPE ESTABLISHED Elements of this note, including but not limited to HPI, ROS, Physical Exam, Assessment and Plan were copied and pasted from previous office visit notes completed within our department. Updates have been made where appropriate/noted and reflect current exam and medical decision making from date of this visit. Patient Name: Chin Rodrigez : 1965 PRIMARY CARE PHYSICIAN: Paras Lopez MD CHIEF COMPLAINT: Patient presents with: Follow Up: Room 10 No cardiac concerns Interval Hx: Mr. Rodrigez comes for a follow up visit. The last office visit visit with Dr. Andrade was 01/17/2022. Patient with 1 hospitalizations or ER visits since last OV. Since last office visit patient has been feeling about the same . He came to the office visit with his . He continues to have episodes of intermittent chest pain that he has had for some time. Is not sure if this is related to his cervical disc versus cardiac. He does note an increase in fatigue. His symptoms can occur with activity and improved with rest. Symptoms are slightly better since being placed on Protonix. He denies any discomfort or pain after eating. Appetite is okay. Fluid intake is good. Not checking his blood pressure at home. He has occasional episodes of dizziness or lightheadedness while standing for long periods at work. He denies roberto syncope. This was of dizziness or lightheadedness occur seconds to minutes. Sleep is fairly good. He wears his CPAP most of the time and wakes up feeling not rested in the morning. He gets up daily at 4 AM. IMPRESSION/PLAN: 1. Coronary artery disease involving [place] coronary artery of [place] heart without angina pectoris - S/P PCI to LAD and LCx in 01/2010 ([facility]) - Exercise MPI 03/2019: no ischemia or infarction - repeat LHC 01/31/2023: Patient LAD stent, LCx stent Present with No Stenosis but 65% mid stenosis beyond stent - MPI 02/13/2023: no ischemia or infarct - Continue ASA and BB - still having some symptoms that I will review with Dr. Mccarthy in the coming week. - it does not appear he is on a statin drug. He report taking fish oil at home. Will recheck his lipid panel and determine plan of care based on those results 2. Mixed hyperlipidemia - Historically was on pravastatin 80mg daily. He did not tolerate this with noted myalgias. - Last lipid panel 05/2022 with LDL 113, TG 147, HDL 39, TC 181 - Repeat fasting lipid panel 3. ANANDA (obstructive sleep apnea) - Compliant on CPAP 4. Esophageal spasms - Multiple OV/hospitalizations for chest pain, all subsequent catheterizations an stress tests normal leading to diagnosis 5. DDD (degenerative disc disease) - Cervical 6.RLS - Mirapex as ordered - consider Magnesium at HS. I spent a total of 38 minutes on the date of the service which included preparing to see the patient, [id number] patient care, completing clinical documentation, performing a medically appropriate examination, counseling and educating the patient/family/caregiver, ordering medications, tests, or procedures, and communicating results to the patient/family/caregiver. Thank you very much for allowing me to assist in the care of Chin Rodrigez. The above information was discussed at length and detail with the patient who verbalized an understanding of the plan and was given ample opportunity to ask questions. The appropriate follow up has been arranged. I have advised the patient to contact me if any questions/problems arise prior to the follow up. Javier Roldan APRN.[facility] Cardiology Nurse Practitioner Section of Regional Cardiology [facility] Dept of Cardiovascular Medicine [facility] Heart and Vascular [place] [address] [place] [address] Office Office May 04, 2023 1:26 PM This note was partially generated using [employer] voice recognition system and may contain errors related to that system including grammar, punctuation, spelling, and words that may be inappropriate. CARDIAC STUDIES: LV Ejection Fraction (%) Date Value 05/21/2021 58 07/04/2014 63 12/25/2013 55 01/17/2013 65 Last EKG Result Conclusion EKG Collected: 01/28/2023 9:23 PM (Preliminary result) Impression: NORMAL SINUS RHYTHM NORMAL ECG Last CT Result Conclusion CT CHEST W IVCON PE Exam End: 01/29/2023 12:13 AM (Final result) Impression: IMPRESSION: No CT angiographic evidence of pulmonary embolism. Small pulmonary and pleural nodules. Incidental Finding: Follow-up Acuity: Inciden (more content not included)... [facility] 05-04-2023 Instructions Javier Roldan APRN.CNP - 05/04/2023 4:12 PM EDT It is hard to say if the symptoms that you continue to have are related to the heart or something else. I will review with Dr. Mccarthy - he is out next week but I do not think I need to review with any other doc - I will call you after I talk with him. Continue Metoprolol 12.5 mg (half tablet) Ways to keep cholesterol down include high fiber Low salt diet. Continue CPAP Stress test in January looked great - no evidence of decrease blood flow to the heart muscle. Please let me know if you have any change in symptoms Try magnesium for restless legs - magnesium oxide will cause some GI changes. You could always try magnesium glycinate. documented in this encounter [facility] 05-04-2023 History of Presen t illness Narrative Images from the original note were not included. Heart and Vascular [place] Department of Cardiovascular Medicine SECTION OF CLINICAL CARDIOLOGY OUTPATIENT VISIT DATE May 04, 2023 OUTPATIENT VISIT TYPE ESTABLISHED Elements of this note, including but not limited to HPI, ROS, Physical Exam, Assessment and Plan were copied and pasted from previous office visit notes completed within our department. Updates have been made where appropriate/noted and reflect current exam and medical decision making from date of this visit. Patient Name: Chin Rodrigez : 1965 PRIMARY CARE PHYSICIAN: Paras Lopez MD CHIEF COMPLAINT: Patient presents with: Follow Up: Room 10 No cardiac concerns Interval Hx: Mr. Rodrigez comes for a follow up visit. The last office visit visit with Dr. Andrade was 01/17/2022. Patient with 1 hospitalizations or ER visits since last OV. Since last office visit patient has been feeling about the same . He came to the office visit with his . He continues to have episodes of intermittent chest pain that he has had for some time. Is not sure if this is related to his cervical disc versus cardiac. He does note an increase in fatigue. His symptoms can occur with activity and improved with rest. Symptoms are slightly better since being placed on Protonix. He denies any discomfort or pain after eating. Appetite is okay. Fluid intake is good. Not checking his blood pressure at home. He has occasional episodes of dizziness or lightheadedness while standing for long periods at work. He denies roberto syncope. This was of dizziness or lightheadedness occur seconds to minutes. Sleep is fairly good. He wears his CPAP most of the time and wakes up feeling not rested in the morning. He gets up daily at 4 AM. IMPRESSION/PLAN: 1. Coronary artery disease involving [place] coronary artery of [place] heart without angina pectoris - S/P PCI to LAD and LCx in 01/2010 ([facility]) - Exercise MPI 03/2019: no ischemia or infarction - repeat LHC 01/31/2023: Patient LAD stent, LCx stent Present with No Stenosis but 65% mid stenosis beyond stent - MPI 02/13/2023: no ischemia or infarct - Continue ASA and BB - still having some symptoms that I will review with Dr. Mccarthy in the coming week. - it does not appear he is on a statin drug. He report taking fish oil at home. Will recheck his lipid panel and determine plan of care based on those results 2. Mixed hyperlipidemia - Historically was on pravastatin 80mg daily. He did not tolerate this with noted myalgias. - Last lipid panel 05/2022 with LDL 113, TG 147, HDL 39, TC 181 - Repeat fasting lipid panel 3. ANANDA (obstructive sleep apnea) - Compliant on CPAP 4. Esophageal spasms - Multiple OV/hospitalizations for chest pain, all subsequent catheterizations an stress tests normal leading to diagnosis 5. DDD (degenerative disc disease) - Cervical 6.RLS - Mirapex as ordered - consider Magnesium at HS. I spent a total of 38 minutes on the date of the service which included preparing to see the patient, [id number] patient care, completing clinical documentation, performing a medically appropriate examination, counseling and educating the patient/family/caregiver, ordering medications, tests, or procedures, and communicating results to the patient/family/caregiver. Thank you very much for allowing me to assist in the care of Chin Umm Elia. The above information was discussed at length and detail with the patient who verbalized an understanding of the plan and was given ample opportunity to ask questions. The appropriate follow up has been arranged. I have advised the patient to contact me if any questions/problems arise prior to the follow up. Javier Roldan APRN.[facility] Cardiology Nurse Practitioner Section of Regional Cardiology [facility] Dept of Cardiovascular Medicine [facility] Heart and Vascular [place] [address] [place] [address] Office Office May 04, 2023 1:26 PM This note was partially generated using [employer] voice recognition system and may contain errors related to that system including grammar, punctuation, spelling, and words that may be inappropriate. CARDIAC STUDIES: LV Ejection Fraction (%) Date Value 05/21/2021 58 07/04/2014 63 12/25/2013 55 01/17/2013 65 Last EKG Result Conclusion EKG Collected: 01/28/2023 9:23 PM (Preliminary result) Impression: NORMAL SINUS RHYTHM NORMAL ECG Last CT Result Conclusion CT CHEST W IVCON PE Exam End: 01/29/2023 12:13 AM (Final result) Impression: IMPRESSION: No CT angiographic evidence of pulmonary embolism. Small pulmonary and pleural nodules. Incidental Finding: Follow-up Acuity: Incidental Finding: Solid: <6 mm (solitary or multiple) Routing Code: N/A Recommendation: No imaging follow-up is recommended Time Frame: N/A Comments: If there are risk factors for lung malignancy, a follow-up chest CT exam could be obtained in 12 months Focal, eccentric mural thickening in the distal esophagus. Correlation with EGD recommended on a non--emergent basis to exclude a potential mural lesion. ACTIONABLE RESULT: FOLLOW-UP Acuity: Actionable Findings: Other Routing Code: Misc_1 Recommendation: Unlisted Recommendation (see report) Time Frame: non-urgent, but prompt follow-up. COMMUNICATION: Results will be communicated with the ordering provider via [employer] staff message or phone message by [facility] [employer] within 2 business days of report finalization. ==== Algorithms for management of incidental imaging findings can be found on the [facility] Intranet Sharepoint site at: [email or web address] [email or web address]/AllItem [email or web address] Parking Regulation Enforcement Officer: MARQUIS Transcribe Date/Time: Jan 29 2023 12:17A Dictated by : RAMONA LEMUS MD This examination was interpreted and the report reviewed and electronically signed by: RAMONA LEMUS MD on Jan 29 2023 12:31AM EST LABS: Sodium (mmol/L) Date Value 01/31/2023 140 01/30/2023 138 05/08/2020 138 08/02/2016 140 Potassium (mmol/L) Date Value 01/31/2023 4.1 01/30/2023 4.1 05/08/2020 4.7 08/02/2016 4.7 BUN (mg/dL) Date Value 01/31/2023 13 01/30/2023 14 01/29/2023 13 01/28/2023 12 05/08/2020 17 08/02/2016 13 08/01/2016 14 11/21/2015 12 Creatinine (mg/dL) Date Value 01/31/2023 0.84 01/30/2023 0.90 01/29/2023 0.90 01/28/2023 0.98 05/08/2020 0.84 08/02/2016 0.87 08/01/2016 0.77 11/21/2015 0.82 Magnesium (mg/dL) Date Value 08/01/2016 2.1 11/21/2015 2.0 Hemoglobin (g/dL) Date Value 01/31/2023 12.8 01/30/2023 14.3 08/01/2016 14.4 11/21/2015 13.5 No results found for: PROBNP BRYAN High Sensitivity (ng/L) Date Value 01/29/2023 <6 01/28/2023 6 01/28/2023 <6 Cholesterol, Total (mg/dL) Date Value 05/26/2022 181 07/10/2020 162 HDL Cholesterol (mg/dL) Date Value 05/26/2022 39 07/10/2020 35 Triglyceride (mg/dL) Date Value 05/26/2022 147 07/10/2020 203 LDL Cholesterol (mg/dL) Date Value 05/26/2022 113 07/10/2020 86 TSH Date Value 01/04/2022 1.760 mIU/L 06/28/2010 2.90 UIU/ML PT INR (no units) Date Value 10/06/2012 1.0 There were no tests performed for review. PHYSICAL EXAMINATION: Vitals: BP 112/64 Pulse 82 Ht 177.8 cm (5' 10 ) Wt 98 kg (216 lb) SpO2 96% BMI 30.99 kg/m General: Well appearing, in no acute distress. Skin: No clubbing, no cyanosis. Eyes: Extra ocular movements intact Oropharynx: Teeth in good repair. Neck: No jugular venous distention, no carotid bruits, carotids have a normal upstroke, no palpable thyromegaly. Lungs: Clear to auscultation bilaterally, no wheezing or rhonchi. Heart: Regular rhythm, PMI not displaced, S1, S2 normal, no S3, no S4, no heaves, no rub and no murmur. Abdomen: Soft, nontender, bowel sounds normal, no palpable organomegaly, no bruits. Extremities: No peripheral edema . Grade 2/4 distal pulses bilaterally. Neuro: Oriented to person, place and time, alert, cooperative, gait coordinated. REVIEW OF SYSTEMS: GENERAL: Negative for: Weight loss or gain, Fever or Chills, Weakness and Sleep difficulties. + fatigue HEENT: Negative for: Headache, Impaired Vision, Glasses, Hearing Impairment, Ringing in Ears, Nosebleeds, Poor dental care, Bleeding Gums, Dentures NECK: Negative for: Swelling, Pain, Stiffness RESPIRATORY: Negative for: Cough, Blood in Sputum, Shortness of breath, Wheezing, Apnea GASTROINTESTINAL: Negative for: Trouble swallowing, Heartburn, Change in bowel habits, Blood in stool, Dark black stools MUSCULOSKELETAL: Negative for: Muscle or joint pain, Stiffness , Joint swelling NEUROLOGIC/PSYCHIATRIC: Negative for: Weakness, Paralysis, Numbness, Tingling, Tremor, Nervousness, Depressed mood, Memory loss SKIN: Negative for: Rashes, Itching HEMATOLOGICAL/LYMPHATIC: Negative for: Easy bruising , Easy bleeding ENDOCRINE: Negative for: Heat or cold intolerance, Excessive sweating, Frequent urination, Frequent thirst ALLERGIES: Versed [Midazolam] PAST MEDICAL HISTORY: PAST MEDICAL HISTORY Diagnosis Date CAD S/P percutaneous coronary angioplasty Congestive heart failure (HCC) Dyslipidemia Fracture Heart attack (HCC) ANANDA on CPAP Pneumonia 09/30/2012 Restless legs syndrome (RLS) SOCIAL HISTORY: Social History Tobacco Use Smoking status: Never Smokeless tobacco: Former Types: Snuff, Chew Quit date: 02/09/1985 Substance Use Topics Alcohol use: No Drug use: No FAMILY HISTORY: No family history on file. I have confirmed and edited as necessary, the PFSH and ROS obtained by others. Javier Roldan APRN.DECORATING INSTRUCTOR CURRENT MEDICATIONS: Current Outpatient Medications Medication Sig pantoprazole DR (PROTONIX) 40 mg tablet Take 1 tablet by mouth DAILY (6 AM). cholecalciferol, Vitamin D3, (VITAMIN D3) 1,250 mcg (50,000 unit) cap capsule Take 1 capsule by mouth one time a week. pramipexole (MIRAPEX) 0.5 mg tablet Take 1 tablet by mouth daily at bedtime. CPAP Supplies: Settings 5 - 15 cm H2O, suitable mask per pt preference, chin strap, head gear, humidity, tubing, lifetime supplies. G47.33 ANANDA metoprolol succinate ER (TOPROL XL) 25 mg 24 hr tablet TAKE 1/2 TABLET BY MOUTH EVERY DAY ferrous sulfate (IRON ORAL) Take 1 tablet by mouth daily at bedtime. Unsure of does it is OTC Aspirin 81 mg ORAL Tab Take 81 mg by mouth once daily. No current facility-administered medications for this visit. documented in this encounter [facility] 03-14-2023 Miscellaneous Notes Lab work needed before vitamin d refill can be approved documented in this encounter [facility] 02-13-2023 Note HNO ID: [id number] Author: RAMONA Robin Service: Radiology Author Type: Technologist Type: Progress Notes Filed: 02/13/2023 2:29 PM Note Text: RADIOLOGY SERVICE PROGRESS NOTE SERVICE DATE: 02/13/2023 SERVICE TIME: 2:28 PM PATIENT IDENTITY VERIFICATION COMPLETED USING TWO (2) STANDARD IDENTIFIERS: Name and Date of confirmed by patient verbally and Name and Date of confirmed by identification band FALL SCREENING: Has the patient had 2 falls in the last year or 1 fall with injury or currently using an Ambulatory Assistive Device (Walker, Cane, Wheelchair, Crutches, etc.)? No PATIENT GENDER DATA: .male ALLERGIES: Reviewed and unchanged MEDICATIONS REVIEWED: Not applicable PATIENT RELEVANT IMPLANT DATA REVIEWED: Not Applicable CREATININE: Creatinine Date Value Ref Range Status 01/31/2023 0.84 0.73 - 1.22 mg/dL Final 01/30/2023 0.90 0.73 - 1.22 mg/dL Final 01/29/2023 0.90 0.73 - 1.22 mg/dL Final Estimated Glomerular Filtration Rate Date Value Ref Range Status 01/31/2023 103 >=60 mL/min/1.73m? Final Comment: Estimated Glomerular Filtration Rate (eGFR) is calculated using the 2020 CKD-EPI creatinine equation. This equation utilizes serum creatinine, sex, and age as parameters. The creatinine assay has traceable calibration to isotope dilution-mass spectrometry. Refer to KDIGO guidelines for clinical interpretation. In patients with unstable renal function, e.g. those with acute kidney injury, the eGFR may not accurately reflect actual GFR. eGFR- Date Value Ref Range Status 05/08/2020 >60 Final P.O.C.T. RESULTS: N/A February 13, [address] PERFORMED: No IV SITE: Ambulatory: A peripheral IV was started in the Right antecubital site with a Angio cath: 22 gauge. POST EXAM PIV STATUS: Discontinued PROCEDURE TYPE: NM Stress: 12.6 mCi [id number] was administered IV for Rest Imaging at 12:50 by mm. 32.3 mCi [id number] was administered IV for Stress Imaging at 13:50 by mm. PATIENT DISCHARGED TO: Ambulatory patient, left PR department area. A Diagnostic radioactive procedure has taken place, with no further precautions necessary other than routine body substance precautions. More information regarding radiation safety can be found using this link: [email or web address] [email or web address] SIGNATURE: RAMONA Robin PATIENT NAME: Chin Rodrigez DATE: February 13, 2023 TIME: 2:28 PM PAGER/CONTACT #: [facility] 01-31-2023 Note HNO ID: [id number] Author: Xavi Mccarthy DO Service: Cardiovascular Disease Author Type: Physician Type: Progress Notes Filed: 01/31/2023 2:56 PM Note Text: Heart and Vascular [place] Department of Cardiovascular Medicine SECTION OF REGIONAL CARDIOLOGY/[facility] Consultation Note Name: Chin Rodrigez : 1965 Primary Physician: Paras Lopez MD Consulting Physician: Paras Lopez MD Primary Television Cabinet Finisher: SERVICE DATE: January 31, 2023 Assessment/ Plan: 1. Coronary artery disease with 60% mid circumflex artery stenosis with patent stent placement to left anterior descending artery and circumflex in 2009 with recurrent chest pain. Patient's symptoms are concerning but with intermediate/borderline mid circumflex stenosis feel that exercise nuclear stress testing is warranted. It appears patient to be discharged today and have ordered an exercise nuclear stress test to be performed as an outpatient and the patient is to call and schedule soon as possible. If he happens to still be in the hospital tomorrow then can proceed as an inpatient. He does appear to have hiatal hernia with gastric erosions to possibly also explain his chest pain and will defer treatment to GI. I discussed plan with patient and at bedside. History: Chin Rodrigez is a 57 year old male who presents with history of coronary disease status post stent placement left anterior descending artery with exertional chest pain. Initial troponins were all normal and no evidence of acute ischemia on electrocardiogram. Asked to further evaluate from a cardiac standpoint. Patient had EGD today awaiting results from GI. Subjective PAST MEDICAL HISTORY Diagnosis Date CAD S/P percutaneous coronary angioplasty Congestive heart failure (HCC) Dyslipidemia Fracture Heart attack (HCC) ANANDA on CPAP Pneumonia 09/30/2012 Restless legs syndrome (RLS) PAST SURGICAL HISTORY Procedure Laterality Date APPENDECTOMY HX HEART SURGERY HX 2 stents History reviewed. No pertinent family history. Social History Tobacco Use Smoking status: Never Smokeless tobacco: Former Types: Snuff, Chew Quit date: 02/09/1985 Substance Use Topics Alcohol use: No Drug use: No Current Facility-Administered Medications Medication Dose Route Frequency nitroglycerin sublingual 0.4 mg tab(s) (NITROQUICK) 0.4 mg SUBLINGUAL q 5 MIN PRN NaCl 0.9% iv flush bag 20 mL INTRAVENOUS PRN acetaminophen 650 mg tab(s) (TYLENOL) 650 mg ORAL q 6 H PRN ondansetron orally disintegrating 4 mg tab(s) (ZOFRAN ODT) 4 mg ORAL q 6 H PRN Or ondansetron (PF) 4 mg injection (ZOFRAN) 4 mg INTRAVENOUS q 6 H PRN pramipexole 0.5 mg tab(s) (MIRAPEX) 0.5 mg ORAL AT BEDTIME metoprolol succinate ER 12.5 mg tab(s) (TOPROL XL) 12.5 mg ORAL DAILY aspirin 81 mg chewable tab(s) 81 mg ORAL DAILY pantoprazole DR 40 mg tab(s) (PROTONIX) 40 mg ORAL DAILY (6 AM) NaCl 0.9% iv infusion 100 mL/hr INTRAVENOUS CONTINUOUS Allergies As of Date: 01/28/2023 Allergen Noted Reaction VERSED [MIDAZOLAM] 04/23/2015 Contraindication-Medical Surgical Fully Assessed 01/28/2023 Objective PHYSICAL EXAMINATION: BP 97/61 Pulse 62 Temp 36.7 ?C (98.1 ?F) (Oral) Resp 18 Ht 177.8 cm (5' 10 ) Wt 99.5 kg (219 lb 6.4 oz) SpO2 98% BMI 31.48 kg/m? BP 97/61 Pulse 62 Temp (Src) 98.1 (Oral) Resp 18 Ht 5' 10 (1.78m) Wt 219 lb 6.4 oz (99.5kg) SpO2 98% BMI 31.48 kg/(m2). O2 Therapy: Room Air, Liters: 2 General: Well appearing, in no acute distress. Skin: No clubbing, no cyanosis. Eyes: Extra ocular movements intact Neck: No jugular venous distention, no carotid bruits, carotids have a normal upstroke, no palpable thyromegaly. Lungs: Clear to auscultation bilaterally, no wheezing or rhonchi. Heart: Regular rhythm, PMI not displaced, S1, S2 normal, no S3, no S4, no heaves, no murmur. Abdomen: Soft, nontender, bowel sounds normal, no palpable organomegaly, no bruits. Extremities: No peripheral edema . +2 distal pulses bilaterally. Neuro: Oriented to person, place and time, alert, cooperative LABS REVIEWED: Recent Labs 01/31/23 0606 01/30/23 0801 01/29/23 0245 NA 140 138 139 K 4.1 4.1 4.2 CO2 22 22 22 BUN 13 14 13 CREAT 0.84 0.90 0.90 GLUC 121* 126* 95 Recent Labs 01/31/23 0601/30/23 0801 01/29/23 0245 WBC 5.11 5.70 5.11 HB 12.8* 14.3 12.6* PLT 173 180 169 SIGNATURE: Xavi Mccarthy DO PATIENT NAME: Chin Rodrigez DATE: January 29, 2023 TIME: 11:28 AM PAGER: Staff [employer] Finisher Xavi and Maki Najera Dept. of Cardiovascular Medicine Heart, Vascular and Thoracic [place], [facility], [facility] This document was generated using the assistance of voice recognition software. If there are any errors of spelling, grammar, syntax or meaning, please feel free to contact me directly at anyt (more content not included)... [facility] 01-30-2023 Note HNO ID: [id number] Author: Xavi Mccarthy DO Service: Cardiovascular Disease Author Type: Physician Type: Progress Notes Filed: 01/30/2023 12:29 PM Note Text: CARDIAC CATHETERIZATION RISK ASSESSMENT SERVICE DATE: January 30, 2023 SERVICE TIME: 12:28 PM Level 1 Cardiac Catheterization Lab Exclusion Check List Is the patient less than 22 years old? No Is there pulmonary edema due to ischemia? No Is there valvular or LV function limitations with severe (Class 4) symptoms? No Is there complex congenital heart disease? No Is there an acute coronary syndrome? No Is this a therapeutic procedure in adult congenital heart disease patient? No SIGNATURE: Xavi Mccarthy DO PATIENT NAME: Chin Rodrigez DATE: January 30, 2023 TIME: 12:28 PM PAGER/CONTACT #: [facility] 01-30-2023 Note HNO ID: [id number] Author: Paras Lopez MD Service: Family Practice Author Type: Physician Type: Progress Notes Filed: 01/30/2023 6:50 AM Note Text: INPATIENT PROGRESS NOTES Patient Name: Chin Rodrigez DATE of SERVICE: 01/30/2023 TIME of SERVICE: 6:41 AM PRIMARY SERVICE: [facility] INTERVAL HPI: seen by cardiology and GI, planned heart cath today ASSESSMENT AND PLAN: Heart cath today Possible EGD No new symptoms MEDICATIONS: Current Facility-Administered Medications Medication Dose Route Frequency nitroglycerin sublingual 0.4 mg tab(s) (NITROQUICK) 0.4 mg SUBLINGUAL q 5 MIN PRN NaCl 0.9% iv flush bag 20 mL INTRAVENOUS PRN acetaminophen 650 mg tab(s) (TYLENOL) 650 mg ORAL q 6 H PRN ondansetron orally disintegrating 4 mg tab(s) (ZOFRAN ODT) 4 mg ORAL q 6 H PRN Or ondansetron (PF) 4 mg injection (ZOFRAN) 4 mg INTRAVENOUS q 6 H PRN pramipexole 0.5 mg tab(s) (MIRAPEX) 0.5 mg ORAL AT BEDTIME metoprolol succinate ER 12.5 mg tab(s) (TOPROL XL) 12.5 mg ORAL DAILY aspirin 81 mg chewable tab(s) 81 mg ORAL DAILY pantoprazole DR 40 mg tab(s) (PROTONIX) 40 mg ORAL DAILY (6 AM) Patient Vitals for the past 48 hrs: BP Temp Temp src Pulse Resp SpO2 Height Weight 01/30/23 0311 105/68 36.5 ?C (97.7 ?F) Oral 73 16 95 % -- -- 01/29/232321 94/53 36.7 ?C (98.1 ?F) Oral 63 16 97 % -- -- 01/29/231958 127/85 36.7 ?C (98.1 ?F) Oral 62 16 97 % -- -- 01/29/23 1512 121/83 36.6 ?C (97.9 ?F) Oral 65 18 96 % -- -- 01/29/23 1112 120/77 36.4 ?C (97.5 ?F) Oral 65 18 95 % -- -- 01/29/23 0743 104/72 36.7 ?C (98.1 ?F) Oral 66 18 94 % -- -- 01/29/23 0139 126/86 36.5 ?C (97.7 ?F) Oral 71 19 94 % -- -- 01/29/23 0135 -- -- -- -- -- -- 177.8 cm (5' 10 ) 99.5 kg (219 lb 6.4 oz) 01/29/23 0100 134/78 -- -- 74 14 95 % -- -- 01/29/23 0045 127/62 -- -- 73 15 96 % -- -- 01/29/23 0030 124/79 -- -- 78 15 95 % -- -- 01/29/23 0000 119/74 -- -- 81 17 (!) 94 % -- -- 01/28/23 2245 117/58 -- -- 90 17 (!) 93 % -- -- 01/28/23 2230 120/68 -- -- 85 15 (!) 93 % -- -- 01/28/23 2215 121/65 -- -- 84 17 (!) 93 % -- -- 01/28/23 2200 122/61 -- -- 85 14 (!) 93 % -- -- 01/28/23 2145 137/69 -- -- 89 15 (!) 93 % -- -- 01/28/23 2132 134/88 -- -- -- -- -- -- -- 01/28/232129 134/88 -- -- 87 16 (!) 94 % -- -- 01/28/23 2125 144/74 36.7 ?C (98.1 ?F) Oral 89 16 96 % 177.8 cm (5' 10 ) 101.7 kg (224 lb 3.3 oz) PHYSICAL EXAM: GENERAL: alert, no distress, cooperative SKIN: No rashes or lesions. OROPHARYNX: Oropharynx normal. NECK: no jugulovenous distention, supple LUNGS: Lungs clear to auscultation. CARDIAC: normal S1 and S2; no rubs, murmurs, or gallops ABDOMEN: Abdomen soft, non-tender. BS normal. No masses or organomegaly. EXTREMETIES: No deformities, cyanosis, edema, clubbing or skin discoloration. NEURO: Alert, oriented X 3, Gait normal. Motor and Sensation grossly intact., DATA: CBC: No results for input(s): WBC, RBC, HB, HCT, PLT, MCV, MCH, MPV, RDW in the last 24 hours. Coags: No results for input(s): PT, INR, APTT in the last 24 hours. CMP: No results for input(s): NA, K, CHLOR, CO2, BUN, CREAT, GLUC, TPROT, CA, MG, ALBUMIN, TBILI, ALKPHOS, ALT, AST, ANION in the last 24 hours. Cardiac Enzymes: No results for input(s): CK, MB, CKMB, TROPT in the last 24 hours. Liver Function, Amylase, Lipase: No results for input(s): TPROT, ALB, ALT, AST, ALKPHOS, TBILI, AMYLASE, LIPASE, LACTATE in the last 24 hours. ABG's: No results for input(s): PH, PCO2, PO2, BE, HCO3, CO2CT, O2HB, COHB, MHGB, TEMP, PHTC, PCO2T, PO2T, O2AD in the last 24 hours. MG/PHOS: No results for input(s): MG, P in the last 24 hours. Plan of care discussed with: Provider, RN, Patient. SIGNATURE: Paras Lopez MD DATE: January 30, 2023 TIME: 6:41 AM [facility] 01-29-2023 Note HNO ID: [id number] Author: RT Terrence(R) Service: ? Author Type: Technologist Type: Progress Notes Filed: 01/28/2023 10:04 PM Note Text: Radiology Service Progress Note PATIENT NAME: Chin Rodrigez DATE OF SERVICE: January 28, 2023 TIME: 10:04 PM PATIENT IDENTITY VERIFICATION COMPLETED USING TWO (2) IDENTIFIERS: Name and Date of confirmed by patient verbally. FALL SCREENING: Has the patient had 2 falls in the last year or 1 fall with injury or currently using an Ambulatory Assistive Device (Walker, Cane, Wheelchair, Crutches, etc.)? Emergency Room Patient: Screened in ED PATIENT GENDER DATA: Male PATIENT RELEVANT IMPLANT DATA REVIEWED: Not Applicable RADIOLOGY DEPARTMENT: General X-ray: Exam(s) Completed: Chest X-Ray PERIPHERAL IV DATA: Not applicable SIGNED BY: RT Terrence(R) January 28, 2023 10:04 PM [facility] 01-28-2023 History of Presen t illness Narrative Radiology Service Progress Note PATIENT NAME: Chin Rodrigez DATE OF SERVICE: January 28, 2023 TIME: 10:04 PM PATIENT IDENTITY VERIFICATION COMPLETED USING TWO (2) IDENTIFIERS: Name and Date of confirmed by patient verbally. FALL SCREENING: Has the patient had 2 falls in the last year or 1 fall with injury or currently using an Ambulatory Assistive Device (Walker, Cane, Wheelchair, Crutches, etc.)? Emergency Room Patient: Screened in ED PATIENT GENDER DATA: Male PATIENT RELEVANT IMPLANT DATA REVIEWED: Not Applicable RADIOLOGY DEPARTMENT: General X-ray: Exam(s) Completed: Chest X-Ray PERIPHERAL IV DATA: Not applicable SIGNED BY: RT Terrence(R) January 28, 2023 10:04 PM documented in this encounter [facility] 12-20-2022 Note HNO ID: [id number] Author: Melyssa Choudhury APRN.[place] Service: ? Author Type: Nurse Practitioner Type: Progress Notes Filed: 12/20/2022 4:20 PM Note Text: [facility] Follow-up/Established patient visit Date of last visit: 02/22/2022 Impression: G47.33 ANANDA (obstructive sleep apnea) (primary encounter diagnosis) G25.81 RLS (restless legs syndrome) E55.9 Vitamin D deficiency 56 yo male who presents for follow up for ANANDA on CPAP with use and benefits noted. He has since established care with Dr. Peres and reports benefits with Mirapex 0.25 mg HS. He did not find Gabapentin to be helpful with RLS symptoms and has since stopped taking. He denies concerns with PTSD and has not had any events since our last visit. Plan: - Continue Auto CPAP at 5-15 cmH2O. - Remember to clean your mask and equipment regularly, as directed. - You should be eligible for new supplies approximately every 3-6 months, depending on your insurance coverage. Contact your Durable Medical Equipment (DME) company for new supplies as needed. - Continue Mirapex 0.25 mg HS - Recheck vitamin D once prescription supplement is completed - Continue appropriate safety precautions - Continue exercise, stress management, and healthy lifestyle Follow up in 6 month(s). Melyssa Choudhury APRN.DECORATING INSTRUCTOR HPI: 57 yo male who presents for follow up for ANANDA on CPAP with use and benefits noted. He is treating RLS with Mirapex 0.25 mg with benefit, but some breakthrough symptoms noted. SLEEP APNEA Sleep apnea type : ANANDA, Most Recent Apnea-Hypopnea Index (AHI): 10.4 Treatment : PAP therapy DME: [facility] PAP History: Current PAP settin-15 cm H2O. Difficulties with AutoPAP: None Reviewed objective PAP compliance data: 11/13/2022 to 12/12/2022 Compliance download: 83.3% >=4 hours Average use: 5 hours 53 minutes 90/95th percentile pressure: 10.6 Leaks 0, residual AHI 2.7 Mask issues: None Uses chin strap: No Uses ramp function: Yes Uses humidity: Yes There is a perceived benefit by the patient RLS Current treatment : Medication(s) and timing : Mirapex 0.25 mg Denies SE or ADRs Symptoms begin in the evening Does have some breakthrough symptoms Tried Gabapentin, did not find benefit SLEEP Bedtime: 9 PM Latency: not long Wakin-3 times due to arm numbness Wake up: 4 AM with an alarm Hours of sleep: 5.5 hours Is tired in the morning Discussed sleep deprivation Naps: not intentionally SLEEP FUNCTIONAL OUTCOME MEASURES: Not completed PAST MEDICAL HISTORY Diagnosis Date Congestive heart failure (HCC) Dyslipidemia Fracture Heart attack (HCC) Pneumonia 09/30/2012 PSH, SH: Reviewed REVIEW OF SYSTEMS SLEEP RELATED ROS GENERAL: See HPI RESPIRATORY: negative dyspnea CARDIOVASCULAR: negative chest pain MUSCULOSKELETAL: positive spine pain SKIN: negative mask irritation PSYCH: negative depression and suicidal thoughts ENDOCRINE: negative thyroid problems NEURO: negative cognitive changes All other systems reviewed and are negative. ALLERGIES Allergen Reactions Versed [Midazolam] Contraindication-Medical Surgical Pt. Has hiccups after versed...Do not use for sedation when having Cervical injections CURRENT MEDICATIONS: metoprolol succinate ER (TOPROL XL) 25 mg 24 hr tablet TAKE 1/2 TABLET BY MOUTH EVERY DAY cholecalciferol, Vitamin D3, (VITAMIN D3) 1,250 mcg (50,000 unit) cap capsule Take 1 capsule by mouth one time a week. ferrous sulfate (IRON ORAL) Take 1 tablet by mouth daily at bedtime. Unsure of does it is OTC CPAP New mask style: Airfit N30i or N30 style mask. Settings 5 - 15 cm H2O, suitable mask per pt preference, chin strap, head gear, humidity, tubing, lifetime supplies. G47.33 ANANDA pravastatin (PRAVACHOL) 80 mg tablet Take 1 tablet by mouth daily at bedtime. Aspirin 81 mg ORAL Tab Take 81 mg by mouth once daily. pramipexole (MIRAPEX) 0.5 mg tablet Take 1 tablet by mouth daily at bedtime. diclofenac, EC, (VOLTAREN) 75 mg EC tablet (Patient not taking: No sig reported) Vital signs: BP 104/65 (BP Site: Left Arm, BP Position: Sitting, BP Cuff Size: Large Adult) Pulse 75 Wt 102.1 kg (225 lb) SpO2 95% BMI 32.28 kg/m? PHYSICAL EXAM: General appearance: NAD, attire appropriate per season Mental status: A AND O X3 Speech: Clear AND coherent Constitutional: Overweight Skin: W/D/I on exposed skin Neuro: Gait stable, hearing intact to conversation Impression: G47.33 ANANDA (obstructive sleep apnea) (primary encounter diagnosis) G25.81 RLS (restless legs syndrome) E61.1 Iron deficiency E55.9 Vitamin D deficiency 57 yo male who presents for follow up for ANANDA on CPAP with use and benefits noted. He is treating RLS with Mirapex 0.25 mg with benefit, but some breakthrough symptoms noted. Will increase Mirapex to 0.5 mg and advise patient to follow up with (more content not included)... [facility] 11-10-2022 Miscellaneous Notes RF approved. Last Office Visit: 02.22.2022 with Tho Choudhury in person Future Office Visit: 11.21.2022 with Tho Choudhury in person Impression: G47.33 ANANDA (obstructive sleep apnea) (primary encounter diagnosis) G25.81 RLS (restless legs syndrome) E55.9 Vitamin D deficiency 56 yo male who presents for follow up for ANANDA on CPAP with use and benefits noted. He has since established care with Dr. Peres and reports benefits with Mirapex 0.25 mg HS. He did not find Gabapentin to be helpful with RLS symptoms and has since stopped taking. He denies concerns with PTSD and has not had any events since our last visit. Plan: - Continue Auto CPAP at 5-15 cmH2O. - Remember to clean your mask and equipment regularly, as directed. - You should be eligible for new supplies approximately every 3-6 months, depending on your insurance coverage. Contact your [employer] company for new supplies as needed. - Continue Mirapex 0.25 mg HS - Recheck vitamin D once prescription supplement is completed - Continue appropriate safety precautions - Continue exercise, stress management, and healthy lifestyle Follow up in 6 month(s). Melyssa Choudhury APRN.DECORATING INSTRUCTOR documented in this encounter [facility] 08-11-2022 Miscellaneous Notes Rx signed. Marti Carlos APRN.CNP 08/11/22 9:29 AM [place] 02/22/2022 [facility] 11/21/2022 in person [facility]ESFA[facility] Melyssa Impression: G47.33 ANANDA (obstructive sleep apnea) (primary encounter diagnosis) G25.81 RLS (restless legs syndrome) E55.9 Vitamin D deficiency 56 yo male who presents for follow up for ANANDA on CPAP with use and benefits noted. He has since established care with Dr. Peres and reports benefits with Mirapex 0.25 mg HS. He did not find Gabapentin to be helpful with RLS symptoms and has since stopped taking. He denies concerns with PTSD and has not had any events since our last visit. Plan: - Continue Auto CPAP at 5-15 cmH2O. - Remember to clean your mask and equipment regularly, as directed. - You should be eligible for new supplies approximately every 3-6 months, depending on your insurance coverage. Contact your [employer] ([employer]) company for new supplies as needed. - Continue Mirapex 0.25 mg HS - Recheck vitamin D once prescription supplement is completed - Continue appropriate safety precautions - Continue exercise, stress management, and healthy lifestyle Follow up in 6 month(s). Melyssa Choudhury APRN.DECORATING INSTRUCTOR documented in this encounter [facility] 07-18-2022 Miscellaneous Notes Refill rejected, lab work needed first. [employer] message sent to patient. documented in this encounter [facility] 05-11-2022 Miscellaneous Notes No problem, RF has been approved. Please schedule appropriate follow up, Melyssa Last Office Visit: 02.22.22 Future Office Visit: not scheduled yet, [employer] message sent to patient. Impression: G47.33 ANANDA (obstructive sleep apnea) (primary encounter diagnosis) G25.81 RLS (restless legs syndrome) E55.9 Vitamin D deficiency 56 yo male who presents for follow up for ANANDA on CPAP with use and benefits noted. He has since established care with Dr. Peres and reports benefits with Mirapex 0.25 mg HS. He did not find Gabapentin to be helpful with RLS symptoms and has since stopped taking. He denies concerns with PTSD and has not had any events since our last visit. Plan: - Continue Auto CPAP at 5-15 cmH2O. - Remember to clean your mask and equipment regularly, as directed. - You should be eligible for new supplies approximately every 3-6 months, depending on your insurance coverage. Contact your Durable Medical Equipment (DME) company for new supplies as needed. - Continue Mirapex 0.25 mg HS - Recheck vitamin D once prescription supplement is completed - Continue appropriate safety precautions - Continue exercise, stress management, and healthy lifestyle Follow up in 6 month(s). Melsysa Choudhury APRN.DECORATING INSTRUCTOR documented in this encounter [facility] 05-10-2022 Miscellaneous Notes Vit d refill refused, lab work needed first, [employer] message sent to patient. documented in this encounter [facility] 04-12-2022 Miscellaneous Notes Vit D refill refused, lab work needed first. [employer] message sent to patient. documented in this encounter [facility] 02-22-2022 History of Presen t illness Narrative Images from the original note were not included. [facility] Follow-up/Established patient visit Date of last visit: 12/20/2021 Impression: 56 yo male who presents for follow up after initially establishing with Dr. Leon 2 years prior. He has a diagnosis of ANANDA treated by CPAP with sub optimal use from download data. He does endorse back pain and RLS as contributing factors of poor sleep HS. He does endorse nightmares/terrors without a mental health provider in place. As for ANANDA, discussed with patient: the physiology of OSAS, medical conditions associated with OSAS (DM, HTN, CAD, Depression, Stroke, Headache, [place]) and treatment of CPAP. Encouraged increased nightly use and new mask opt for comfort. Nightmares/terrors, possible PTSD advised consult to psychiatry, specifically Dr. Peres here in [place]. RLS and neuropathic pain discussed and will start Gabapentin 300 mg to cross cover RLS as shown to be moderate degree on KP questionnaire. Reviewed SE and ADRs with patient, 30 day trial and to update me of progress in a few weeks. PDMP website checked and validated. All prescriptions have been APPROPRIATELY filled. No suspicious activity was identified. 12/20/2021 by Melyssa Choudhury APRN.DECORATING INSTRUCTOR Plan: G47.33 ANANDA (obstructive sleep apnea) (primary encounter diagnosis) I25.10 Coronary artery disease involving [place] coronary artery of [place] heart without angina pectoris G47.19 Daytime hypersomnolence Z72.820 Sleep deprivation - Continue Auto CPAP & increase use - New mask opt - Remember to clean your mask and equipment regularly, as directed. - You should be eligible for new supplies approximately every 3-6 months, depending on your insurance coverage. Contact your Durable Medical Equipment (DME) company for new supplies as needed. G25.81 RLS (restless legs syndrome) E55.9 Vitamin D deficiency - Nonmedical therapy for restless legs syndrome includes : cold/warm compresses, warm/hot baths or showers, gentle massage, mild leg stretching at nighttime, or magnesium supplements ( 250- 1000 mg at nighttime daily). Mentally alerting activities help too. Note the caffeine, alcohol, nicotine, antidepressants, anti-nausea meds and antihistamines can cause or worsen symptoms. - Start GBP 300 mg HS - Additional labs ordered Follow up in 3 month(s). Melyssa Choudhury APRN.DECORATING INSTRUCTOR HPI: 56 yo male who presents for follow up for ANANDA on CPAP with use and benefits noted. He has since established care with Dr. Peres and reports benefits with Mirapex 0.25 mg HS. He did not find Gabapentin to be helpful with RLS symptoms and has since stopped taking. He denies concerns with PTSD and has not had any events since our last visit. SLEEP APNEA Sleep apnea type : ANANDA, Most Recent Apnea-Hypopnea Index (AHI): 10.4 Treatment : PAP therapy DME: [facility] PAP History: Current PAP settin-15 cm H2O. Difficulties with AutoPAP: None Reviewed objective PAP compliance data: 01/23/2022 to 02/21/2022 Compliance download: 76.7% >=4 hours Average use: 5 hours 38 minutes 90/95th percentile pressure: 10.4 Leaks 2 sec, residual AHI 2.5 Mask issues: would like to try a nasal mask Uses chin strap: No Uses ramp function: Yes Uses humidity: Yes There is a perceived benefit by the patient RLS Current treatment : Medication(s) and timing : Mirapex 0.25 mg Status : improved Reports resolution of symptoms presently Denies SE or ADRs SLEEP-WAKE SCHEDULE Bedtime: 9 PM Latency: not long Nocturnal wakings: once or twice to reposition Wake time: 4 AM, with an alarm. Sometimes without. On weekends, he maintains the same sleep schedule. Average total sleep time (in a 24 hour period): 7 hours. He does take naps. Frequency: if I can get one I will grab one , Duration: not very long . Naps are not refreshing. Sleep behaviors: none- vastly improved since last visit. SLEEP FUNCTIONAL OUTCOME MEASURES: Not completed PAST MEDICAL HISTORY Diagnosis Date Congestive heart failure (HCC) Dyslipidemia Fracture Heart attack (HCC) Pneumonia 09/30/2012 PSH, SH: Reviewed REVIEW OF SYSTEMS SLEEP RELATED ROS GENERAL: See HPI HEENT: negative post-nasal drip RESPIRATORY: negative dyspnea CARDIOVASCULAR: negative palpitations and chest pain SKIN: negative mask irritation PSYCH: negative depression and suicidal thoughts ENDOCRINE: negative thyroid problems NEURO: negative memory problems All other systems reviewed and are negative. ALLERGIES Allergen Reactions Versed [Midazolam] Contraindication-Medical Surgical Pt. Has hiccups after versed...Do not use for sedation when having Cervical injections CURRENT MEDICATIONS: pramipexole (MIRAPEX) 0.25 mg tablet Take 0.25 mg by mouth daily at bedtime. ferrous sulfate (IRON ORAL) Take 1 tablet by mouth daily at bedtime. Unsure of does it is OTC cholecalciferol, Vitamin D3, (VITAMIN D3) 1,250 mcg (50,000 unit) cap capsule Take 1 capsule by mouth one time a week. CPAP New mask (Airfit N30i) & additional supplies Autopap 5-15 cm H2O, Heat Humidity, suitable mask, Lifetime supplies, opt [place], G47.33. metoprolol succinate ER (TOPROL XL) 25 mg 24 hr tablet TAKE 1/2 TABLET BY MOUTH ONCE DAILY pravastatin (PRAVACHOL) 80 mg tablet Take 1 tablet by mouth daily at bedtime. Aspirin 81 mg ORAL Tab Take 81 mg by mouth once daily. CPAP New mask style: Airfit N30i or N30 style mask. Settings 5 - 15 cm H2O, suitable mask per pt preference, chin strap, head gear, humidity, tubing, lifetime supplies. G47.33 ANANDA diclofenac, EC, (VOLTAREN) 75 mg EC tablet Vital signs: BP 102/65 (BP Site: Left Arm, BP Position: Sitting, BP Cuff Size: Large Adult) Pulse 99 Wt 99.8 kg (220 lb) SpO2 100% BMI 31.57 kg/m PHYSICAL EXAM: General appearance: NAD, attire appropriate per season Mental status: A & O X3 Speech: Clear & Coherent Constitutional: Overweight Skin: W/D/I on exposed skin Musculoskeletal/ Extremities: Neg BLE edema Neuro: Gait stable, hearing intact to conversation Impression: G47.33 ANANDA (obstructive sleep apnea) (primary encounter diagnosis) G25.81 RLS (restless legs syndrome) E55.9 Vitamin D deficiency 56 yo male who presents for follow up for ANANDA on CPAP with use and benefits noted. He has since established care with Dr. Peres and reports benefits with Mirapex 0.25 mg HS. He did not find Gabapentin to be helpful with RLS symptoms and has since stopped taking. He denies concerns with PTSD and has not had any events since our last visit. Plan: - Continue Auto CPAP at 5-15 cmH2O. - Remember to clean your mask and equipment regularly, as directed. - You should be eligible for new supplies approximately every 3-6 months, depending on your insurance coverage. Contact your [employer]urable Medical Equipment (DME) company for new supplies as needed. - Continue Mirapex 0.25 mg HS - Recheck vitamin D once prescription supplement is completed - Continue appropriate safety precautions - Continue exercise, stress management, and healthy lifestyle Follow up in 6 month(s). Melyssa Choudhury APRN.[place] I spent a total of 35 minutes on the date of the service which included preparing to see the patient, [id number] patient care, completing clinical documentation, obtaining and/or reviewing separately obtained history, performing a medically appropriate examination, counseling and educating the patient/family/caregiver, ordering medications, tests, or procedures and communicating results to the patient/family/caregiver. documented in this encounter [facility] 02-22-2022 Instructions Melyssa Choudhury APRN.DECORATING INSTRUCTOR - 02/22/2022 3:43 PM EDT PAP Supply Guidelines [facility] Care Below are the guidelines for reordering your supplies. You will be responsible for your deductible, co-payments, and out of pocket expenses. Item Medicare & Commercial Insurance Nasal Mask (no headgear) 1 every 3 months Nasal Mask Cushion 1 every month Full Face Mask (no headgear) 1 every 3 months Full Face Mask Cushion 1 every month Nasal Pillows 2 every month Headgear 1 every 6 months Chin Strap 1 every 6 months Tubing 1 every 3 months Filters: Reusable 1 every 6 months Filters: Disposable 2 every month Humidifier Chamber(disposable) 1 every 6 months Sleep Hygiene and Good Sleep Habits Establish a regular routine that includes going to bed and getting up at the same time every day, even on weekends. Maintaining a consistent sleep-wake cycle is the dietrich to better health overall. Get an adequate amount of sleep every night. Determine the amount of sleep you need by keeping track of how long you sleep without using an alarm clock for a week. Maintain this personal sleep requirement. Go to bed when you are sleepy. If you have difficulty falling asleep or wake up shortly after going to sleep, leave the bedroom and read quietly or do some other relaxing activity. Avoid bright lights as this can cue your wake cycle. Develop sleep rituals before going to bed. Do the same things in the same order before going to bed to cue your body to slow down and relax. Avoid stress and worries at bedtime. Address tomorrow's activities, concerns, or distractions earlier in the day. Certain activities, such as listening to soft music, reading, or taking a warm bath, can help you wind down. Use your bed for sleeping and sex only. Often, doing other activities in bed like watching TV, paying bills, or working only serve to initiate worries and concerns. Let your mind associate the bed with sleeping, relaxing, and pleasure. Avoid heavy meals late in the evening; similarly, avoid going to bed hungry. A light snack, especially dairy foods, can help you sleep. Reduce your intake of caffeine and nicotine 4-6 hours before going to sleep. Stimulants interfere with your ability to fall asleep and progress into deep sleep. 200mg caffeine (a large Starbucks coffee) taken at 8 AM will impair the sleep architecture that night. Avoid alcohol 4-6 hours before bedtime. As a depressant that slows brain activity, alcohol may initially make you tired, but you will end up having fragmented sleep. In addition, being tired intensifies the effects of alcohol. Alcohol also aggravates snoring and sleep apnea particularly in men. Exercise regularly. Regular exercise, even for 20 minutes, 3 times a week, promotes deep sleep. Don't nap for more than 30 minutes or after 3 PM. Avoiding naps all together will ensure that you are tired at night. Longer naps disrupt the body's ability to stay asleep. Maintain a dark, quiet room to sleep in at a temperature with which you are comfortable. Use sleeping aids conservatively documented in this encounter [facility] 12-20-2021 Instructions Melyssa Choudhury APRN.CNP - 12/20/2021 1:[address] Peres [phone] [address] [facility] [address] Safety Tips: 1. Move any breakable items and nightstands away from your bed. 2. If you have any weapons in your home, make sure they are stored safely and securely away from where you sleep. 3. If you have violent episodes, consider sleeping separately from your partner. 4. If you often fall or jump out of your bed, you might try using a sleeping bag on the floor, mat, or a padded bed rail. Lower the bed as much as possible. 5. Keep a clear path to the bathroom, include a dim lit night light. 6. Do not keep rugs in the bedroom/bathroom to avoid a trip hazard. 7. Avoid alcohol use 8. It is important to continue discussion and review safety with your family members, including those in the home, or whom you share a bed with. Sleep Hygiene and Good Sleep Habits Establish a regular routine that includes going to bed and getting up at the same time every day, even on weekends. Maintaining a consistent sleep-wake cycle is the dietrich to better health overall. Get an adequate amount of sleep every night. Determine the amount of sleep you need by keeping track of how long you sleep without using an alarm clock for a week. Maintain this personal sleep requirement. Go to bed when you are sleepy. If you have difficulty falling asleep or wake up shortly after going to sleep, leave the bedroom and read quietly or do some other relaxing activity. Avoid bright lights as this can cue your wake cycle. Develop sleep rituals before going to bed. Do the same things in the same order before going to bed to cue your body to slow down and relax. Avoid stress and worries at bedtime. Address tomorrow's activities, concerns, or distractions earlier in the day. Certain activities, such as listening to soft music, reading, or taking a warm bath, can help you wind down. Use your bed for sleeping and sex only. Often, doing other activities in bed like watching TV, paying bills, or working only serve to initiate worries and concerns. Let your mind associate the bed with sleeping, relaxing, and pleasure. Avoid heavy meals late in the evening; similarly, avoid going to bed hungry. A light snack, especially dairy foods, can help you sleep. Reduce your intake of caffeine and nicotine 4-6 hours before going to sleep. Stimulants interfere with your ability to fall asleep and progress into deep sleep. 200mg caffeine (a large Starbucks coffee) taken at 8 AM will impair the sleep architecture that night. Avoid alcohol 4-6 hours before bedtime. As a depressant that slows brain activity, alcohol may initially make you tired, but you will end up having fragmented sleep. In addition, being tired intensifies the effects of alcohol. Alcohol also aggravates snoring and sleep apnea particularly in men. Exercise regularly. Regular exercise, even for 20 minutes, 3 times a week, promotes deep sleep. Don't nap for more than 30 minutes or after 3 PM. Avoiding naps all together will ensure that you are tired at night. Longer naps disrupt the body's ability to stay asleep. Maintain a dark, quiet room to sleep in at a temperature with which you are comfortable. Use sleeping aids conservatively documented in this encounter [facility] 12-20-2021 History of Presen t illness Narrative Images from the original note were not included. [facility] Follow-up/Established patient visit Date of last visit: 10/15/2019 IMPRESSION/PLAN Regarding Sleep Disorder Diagnoses: Obstructive Sleep Apnea Parasom radha NOS Restless legs syndrome. Psychiatric disorders: na Other Diagnoses conditioning the treatment plan: CAD Case Formulation / [place] (may include pt's hopes, fears, expectations, concerns): Pt should do well with autopap. RLS may foreign with treatment of ANANDA, as will the parasomnia Actions taken: Motivational Interviewing aspects taken Explaining out the issues, asking permission PDMP Aspect: na autopap 5-15 cm through [facility] Studies. Follow up about December 24, in [facility]. . Geovani Leon MD Beeper: [id number] HPI: 56 yo male who presents for follow up after initially establishing with Dr. Leon 2 years prior. He has a diagnosis of ANANDA treated by CPAP with sub optimal use from download data. He does endorse back pain and RLS as contributing factors of poor sleep HS. He does endorse nightmares/terrors without a mental health provider in place. SLEEP APNEA Sleep apnea type : ANANDA, Most Recent Apnea-Hypopnea Index (AHI): 10.4 Treatment : PAP therapy DME: [facility] PAP History: Current PAP settin-15 cm H2O. Difficulties with AutoPAP: Yes: mask discomfort Reviewed objective PAP compliance data: 11/20/21 to 12/19/21 Compliance download: 56.7% >=4 hours Average use: 4 hours 59 minutes 90/95th percentile pressure: 10.9 Leaks 0, residual AHI 2.9 Mask type: nasal pillow interface Mask issues: skin irritation Uses chin strap: No Uses ramp function: Yes Uses humidity: Yes There is a perceived benefit by the patient SLEEP-WAKE SCHEDULE Bedtime: 9 PM Latency: not very long Nocturnal wakings: 3- 5 times due to pain (cervical spinal pain and RLS) Patient states my arms are going numb The mask may wake him up Wake time: 4 AM, with an alarm. Average total sleep time (in a 24 hour period): 4 hours. RLS Neuropathic type pain reported Tossing and turning in bed Reports dream enactment type behavior, but subjective data aligns with nightmares/terrors Reviewed RBD and link to Parkinson's in which patient is asymptomatic Review of sleep studies endorse RLS but no RBD like behavior captured Tries melatonin in past, cannot recall outcomes Due to nightmares as probable Dx, avoid melatonin until eval by mental health provider SLEEP FUNCTIONAL OUTCOME MEASURES: reviewed and uploaded. PAST MEDICAL HISTORY Diagnosis Date Congestive heart failure (HCC) Dyslipidemia Fracture Heart attack (HCC) Pneumonia 09/30/2012 PSH, SH: Reviewed REVIEW OF SYSTEMS SLEEP RELATED ROS GENERAL: See HPI HEENT: negative nasal congestion RESPIRATORY: negative dyspnea on exertion CARDIOVASCULAR: negative palpitations and chest pain - reports CP on and off, not presently, but did advise to present to ER with red flag symptoms : negative nocturia MUSCULOSKELETAL: positive generalized body pain SKIN: positive mask irritation PSYCH: positive nightmares ENDOCRINE: negative thyroid problems NEURO: negative cognitive changes All other systems reviewed and are negative. ALLERGIES Allergen Reactions Versed [Midazolam] Contraindication-Medical Surgical Pt. Has hiccups after versed...Do not use for sedation when having Cervical injections CURRENT MEDICATIONS: CPAP New mask (Airfit N30i) & additional supplies Autopap 5-15 cm H2O, Heat Humidity, suitable mask, Lifetime supplies, opt Chinstrap, G47.33. diclofenac, EC, (VOLTAREN) 75 mg EC tablet metoprolol succinate ER (TOPROL XL) 25 mg 24 hr tablet TAKE 1/2 TABLET BY MOUTH ONCE DAILY pravastatin (PRAVACHOL) 80 mg tablet Take 1 tablet by mouth daily at bedtime. methylPREDNISolone (MEDROL DOSE-PACK) 4 mg Dose-Pack As Instructed per package Aspirin 81 mg ORAL Tab Take 81 mg by mouth once daily. Vital signs: BP 115/75 (BP Site: Left Arm, BP Position: Sitting, BP Cuff Size: Large Adult) Pulse 102 Wt 99.8 kg (220 lb) SpO2 97% BMI 31.57 kg/m PHYSICAL EXAM: General appearance: NAD, attire appropriate per season Mental status: A & O X3 Speech: Clear & Coherent Constitutional: Overweight Skin: W/D/I on exposed skin Musculoskeletal/ Extremities: Neg BLE edema Neuro: Gait stable, hearing intact to conversation Impression: 56 yo male who presents for follow up after initially establishing with Dr. Leon 2 years prior. He has a diagnosis of ANANDA treated by CPAP with sub optimal use from download data. He does endorse back pain and RLS as contributing factors of poor sleep HS. He does endorse nightmares/terrors without a mental health provider in place. As for ANANDA, discussed with patient: the physiology of OSAS, medical conditions associated with OSAS (DM, HTN, CAD, Depression, Stroke, Headache, [place]) and treatment of CPAP. Encouraged increased nightly use and new mask opt for comfort. Nightmares/terrors, possible PTSD advised consult to psychiatry, specifically Dr. Peres here in [place]. RLS and neuropathic pain discussed and will start Gabapentin 300 mg to cross cover RLS as shown to be moderate degree on KP questionnaire. Reviewed SE and ADRs with patient, 30 day trial and to update me of progress in a few weeks. PDMP website checked and validated. All prescriptions have been APPROPRIATELY filled. No suspicious activity was identified. 12/20/2021 by Melyssa Choudhury APRN.DECORATING INSTRUCTOR Plan: G47.33 ANANDA (obstructive sleep apnea) (primary encounter diagnosis) I25.10 Coronary artery disease involving [place] coronary artery of [place] heart without angina pectoris G47.19 Daytime hypersomnolence Z72.820 Sleep deprivation - Continue Auto CPAP & increase use - New mask opt - Remember to clean your mask and equipment regularly, as directed. - You should be eligible for new supplies approximately every 3-6 months, depending on your insurance coverage. Contact your Durable Medical Equipment (DME) company for new supplies as needed. G25.81 RLS (restless legs syndrome) E55.9 Vitamin D deficiency - Nonmedical therapy for restless legs syndrome includes : cold/warm compresses, warm/hot baths or showers, gentle massage, mild leg stretching at nighttime, or magnesium supplements ( 250- 1000 mg at nighttime daily). Mentally alerting activities help too. Note the caffeine, alcohol, nicotine, antidepressants, anti-nausea meds and antihistamines can cause or worsen symptoms. - Start GBP 300 mg HS - Additional labs ordered Follow up in 3 month(s). Melyssa Choudhury APRN.DECORATING INSTRUCTOR I spent a total of 42 minutes on the date of the service which included preparing to see the patient, [id number] patient care, completing clinical documentation, obtaining and/or reviewing separately obtained history, performing a medically appropriate examination, counseling and educating the patient/family/caregiver, ordering medications, tests, or procedures and communicating results to the patient/family/caregiver. documented in this encounter [facility] documented as of this encounter (statuses as of 12/20/2021) [facility]-09-2015 History of Past illness Narrative* Problem Noted Date Resolved Date Left upper arm pain 01/01/2015 06/13/2019 Left arm pain 11/14/2014 06/13/2019 Low blood pressure 03/24/2014 06/13/2019 Chest pain - non-cardiac 01/15/2013 016 documented as of this encounter (statuses as of 01/06/2022) [facility]2015 History of Past illness Narrative* Problem Noted Date Resolved Date Left upper arm pain 01/01/2015 06/13/2019 Left arm pain 11/14/2014 06/13/2019 Low blood pressure 03/24/2014 06/13/2019 Chest pain - non-cardiac 01/15/2013 016 documented as of this encounter (statuses as of 02/22/2022) [facility] History of Past illness Narrative* Problem Noted Date Resolved Date Left upper arm pain 01/01/2015 06/13/2019 Left arm pain 11/14/2014 06/13/2019 Low blood pressure 03/24/2014 06/13/2019 Chest pain - non-cardiac 01/15/2013 016 documented as of this encounter (statuses as of 04/12/2022) [place] [id number] History of Past illness Narrative* Problem Noted Date Resolved Date Left upper arm pain 01/01/2015 06/13/2019 Left arm pain 11/14/2014 06/13/2019 Low blood pressure 03/24/2014 06/13/2019 Chest pain - non-cardiac 01/15/2013 016 documented as of this encounter (statuses as of 05/10/2022) [facility] History of Past illness Narrative* Problem Noted Date Resolved Date Left upper arm pain 01/01/2015 06/13/2019 Left arm pain 11/14/2014 06/13/2019 Low blood pressure 03/24/2014 06/13/2019 Chest pain - non-cardiac 01/15/2013 016 documented as of this encounter (statuses as of 05/12/2022) [address]09-2015 History of Past illness Narrative* Problem Noted Date Resolved Date Left upper arm pain 01/01/2015 06/13/2019 Left arm pain 11/14/2014 06/13/2019 Low blood pressure 03/24/2014 06/13/2019 Chest pain - non-cardiac 01/15/2013 016 documented as of this encounter (statuses as of 05/27/2022) [address]09-2015 History of Past illness Narrative* Problem Noted Date Resolved Date Left upper arm pain 01/01/2015 06/13/2019 Left arm pain 11/14/2014 06/13/2019 Low blood pressure 03/24/2014 06/13/2019 Chest pain - non-cardiac 01/15/2013 016 documented as of this encounter (statuses as of 07/18/2022) [address]09-2015 History of Past illness Narrative* Problem Noted Date Resolved Date Left upper arm pain 01/01/2015 06/13/2019 Left arm pain 11/14/2014 06/13/2019 Low blood pressure 03/24/2014 06/13/2019 Chest pain - non-cardiac 01/15/2013 016 documented as of this encounter (statuses as of 08/11/2022) [address]-2015 History of Past illness Narrative* Problem Noted Date Resolved Date Left upper arm pain 01/01/2015 06/13/2019 Left arm pain 11/14/2014 06/13/2019 Low blood pressure 03/24/2014 06/13/2019 Chest pain - non-cardiac 01/15/2013 016 documented as of this encounter (statuses as of 11/10/2022) [address]09-2015 History of Past illness Narrative* Problem Noted Date Resolved Date Left upper arm pain 01/01/2015 06/13/2019 Left arm pain 11/14/2014 06/13/2019 Low blood pressure 03/24/2014 06/13/2019 Chest pain - non-cardiac 01/15/2013 016 documented as of this encounter (statuses as of 01/29/2023) [address]-2015 History of Past illness Narrative* Problem Noted Date Resolved Date Left upper arm pain 01/01/2015 06/13/2019 Left arm pain 11/14/2014 06/13/2019 Low blood pressure 03/24/2014 06/13/2019 Chest pain - non-cardiac 01/15/2013 016 documented as of this encounter (statuses as of 03/14/2023) [address]-2015 History of Past illness Narrative* Problem Noted Date Diagnosed Date Resolved Date Left upper arm pain 01/01/2015 06/13/20 19 Left arm pain 11/14/2014 06/13/2019 Low blood pressure 03/24/2014 9 Chest pain - non-cardiac 01/15/201304/2016 documented as of this encounter (statuses as of 05/05/2023) [address]09-2015 History of Past illness Narrative* Problem Noted Date Diagnosed Date Resolved Date Left upper arm pain 01/01/2015 06/13/20 19 Left arm pain 11/14/2014 06/13/2019 Low blood pressure 03/24/2014 9 Chest pain - non-cardiac 01/15/201304/2016 documented as of this encounter (statuses as of 08/04/2023) [address]-2015 History of Past illness Narrative* Problem Noted Date Diagnosed Date Resolved Date Left upper arm pain 01/01/2015 06/13/20 19 Left arm pain 11/14/2014 06/13/2019 Low blood pressure 03/24/2014 9 Chest pain - non-cardiac 01/15/201304/2016 documented as of this encounter (statuses as of 08/30/2023) [address] History of Past illness Narrative* Problem Noted Date Diagnosed Date Resolved Date Left upper arm pain 01/01/2015 06/13/20 19 Left arm pain 11/14/2014 06/13/2019 Low blood pressure 03/24/2014 9 Chest pain - non-cardiac 01/15/201304/2016 documented as of this encounter (statuses as of 08/31/2023) [facility] History of Past illness Narrative* Problem Noted Date Diagnosed Date Resolved Date Left upper arm pain 01/01/2015 06/13/20 19 Left arm pain 11/14/2014 06/13/2019 Low blood pressure 03/24/2014 9 Chest pain - non-cardiac 01/15/201304/2016 documented as of this encounter (statuses as of 09/08/2023) [facility] [place] [facility] Diagnosis ANANDA (obstructive sleep apnea)- Primary Obstructive sleep apnea (adult) (pediatric) Coronary artery disease involving [place] coronary artery of [place] heart without angina pectoris Daytime hypersomnolence Hypersomnia, unspecified Sleep deprivation Problems related to lack of adequate sleep RLS (restless legs syndrome) Restless legs syndrome (RLS) Vitamin D deficiency Unspecified vitamin D deficiency [facility] [place] [facility]* Diagnosis ANANDA (obstructive sleep apnea)- Primary Obstructive sleep apnea (adult) (pediatric) RLS (restless legs syndrome) Restless legs syndrome (RLS) Vitamin D deficiency Unspecified vitamin D deficiency [facility] [place] [facility] Diagnosis Vitamin D deficiency- Primary Unspecified vitamin D deficiency [facility] [place] [facility]* Diagnosis Vitamin D deficiency- Primary Unspecified vitamin D deficiency [facility] [place] [facility]* Diagnosis RLS (restless legs syndrome)- Primary Restless legs syndrome (RLS) [facility] [place] [facility]* Diagnosis RLS (restless legs syndrome) Restless legs syndrome (RLS) [facility] [place] [facility] Diagnosis Vitamin D deficiency- Primary Unspecified vitamin D deficiency [facility] [place] [facility] Diagnosis Coronary artery disease involving [place] coronary artery of [place] heart without angina pectoris- Primary Mixed hyperlipidemia ANANDA on CPAP Obstructive sleep apnea (adult) (pediatric) Esophageal spasm Dyskinesia of esophagus DDD (degenerative disc disease), cervical Degeneration of cervical intervertebral disc [facility] [place] [facility] Diagnosis Mixed hyperlipidemia- Primary Coronary artery disease involving [place] coronary artery of [place] heart without angina pectoris Chest pain, unspecified type documented in this encounter [facility] Summary Purpose Family History No Family History Records FoundNo Family History Records FoundNo Family History Records FoundNo Family History Records FoundNo Family History Records Found Advance Directives Documents on File Type Date Recorded Patient Telephone Clerk Expl anation Advance Directive(s) 05/24/2018 2:52 PM Advance Directive(s) 12/01/2015 7:26 AM Additional Source Comments (unrecognized sect ion and content) No Status Records FoundNo Status Records FoundNo Status Records FoundNo Status Records FoundNo Status Records Found INFORMATION SOURCE (unrecogn ized section and content) DATE CREATED AUTHOR AUTHOR'S ORGANIZ ATION 03/21/2018 [facility] DATE CREATED AUTHOR AUTHOR'S ORGANIZ ATION 11/29/2020 [facility] DATE CREATED AUTHOR AUTHOR'S ORGANIZ ATION 08/31/2023 [facility] DATE CREATED AUTHOR AUTHOR'S ORGANIZ ATION 09/01/2023 [facility] Source Comments (unrecognize d section and content) In the event this informatio n is protected by the Federal Confidentiality of Alcohol and Drug Abuse Patient Records regulations: The Federal rules restrict any use of the information to criminally investigate or prosecute any alcohol or drug abuse patient.[facility] the event this information is protected by the Federal Confidentiality of Alcohol and Drug Abuse Patient Records regulations: The Federal rules restrict any use of the information to criminally investigate or prosecute any alcohol or drug abuse patient.[facility] the event this information is protected by the Federal Confidentiality of Alcohol and Drug Abuse Patient Records regulations: The Federal rules restrict any use of the information to criminally investigate or prosecute any alcohol or drug abuse patient.[facility] the event this information is protected by the Federal Confidentiality of Alcohol and Drug Abuse Patient Records regulations: The Federal rules restrict any use of the information to criminally investigate or prosecute any alcohol or drug abuse patient.[facility] the event this information is protected by the Federal Confidentiality of Alcohol and Drug Abuse Patient Records regulations: The Federal rules restrict any use of the information to criminally investigate or prosecute any alcohol or drug abuse patient.[facility] the event this information is protected by the Federal Confidentiality of Alcohol and Drug Abuse Patient Records regulations: The Federal rules restrict any use of the information to criminally investigate or prosecute any alcohol or drug abuse patient.[facility] HamiltonIn the event this information is protected by the Federal Confidentiality of Alcohol and Drug Abuse Patient Records regulations: The Federal rules restrict any use of the information to criminally investigate or prosecute any alcohol or drug abuse patient.[facility] HamiltonIn the event this information is protected by the Federal Confidentiality of Alcohol and Drug Abuse Patient Records regulations: The Federal rules restrict any use of the information to criminally investigate or prosecute any alcohol or drug abuse patient.[facility] HamiltonIn the event this information is protected by the Federal Confidentiality of Alcohol and Drug Abuse Patient Records regulations: The Federal rules restrict any use of the information to criminally investigate or prosecute any alcohol or drug abuse patient.[facility] HamiltonIn the event this information is protected by the Federal Confidentiality of Alcohol and Drug Abuse Patient Records regulations: The Federal rules restrict any use of the information to criminally investigate or prosecute any alcohol or drug abuse patient.[facility] HamiltonIn the event this information is protected by the Federal Confidentiality of Alcohol and Drug Abuse Patient Records regulations: The Federal rules restrict any use of the information to criminally investigate or prosecute any alcohol or drug abuse patient.[facility] HamiltonIn the event this information is protected by the Federal Confidentiality of Alcohol and Drug Abuse Patient Records regulations: The Federal rules restrict any use of the information to criminally investigate or prosecute any alcohol or drug abuse patient.[facility] HamiltonIn the event this information is protected by the Federal Confidentiality of Alcohol and Drug Abuse Patient Records regulations: The Federal rules restrict any use of the information to criminally investigate or prosecute any alcohol or drug abuse patient.[facility] HamiltonIn the event this information is protected by the Federal Confidentiality of Alcohol and Drug Abuse Patient Records regulations: The Federal rules restrict any use of the information to criminally investigate or prosecute any alcohol or drug abuse patient.[facility] HamiltonIn the event this information is protected by the Federal Confidentiality of Alcohol and Drug Abuse Patient Records regulations: The Federal rules restrict any use of the information to criminally investigate or prosecute any alcohol or drug abuse patient.[facility] HamiltonIn the event this information is protected by the Federal Confidentiality of Alcohol and Drug Abuse Patient Records regulations: The Federal rules restrict any use of the information to criminally investigate or prosecute any alcohol or drug abuse patient.[facility] HamiltonIn the event this information is protected by the Federal Confidentiality of Alcohol and Drug Abuse Patient Records regulations: The Federal rules restrict any use of the information to criminally investigate or prosecute any alcohol or drug abuse patient.[facility] Reason for Visit (unrecogniz ed section and content) Reason Comments Sleep Apnea Patient waiting on h is mask due to 3 month replacement process and insurance. He has to call DME. Doing well other [place]. Reason Comments Refill Request Reason Comments Radio Gen RMP Reason Comments Follow Up Room 10No cardiac co ncerns Reason Comments Results Reason Comments Cardiology Follow Up No new cardiac conc erns Care Teams (unrecognized sec tion and content) Associate Professor Of Communication Relationship Specialty Start Date End Date Paras Lopez MD PCP - General Family Practice 03/09/12 Associate Professor Of Communication Relationship Specialty Start Date End Date Paras Lopez MD PCP - General Family Practice 03/09/12 Associate Professor Of Communication Relationship Specialty Start Date End Date Paras Lopez MD PCP - General Family Practice 03/09/12 Associate Professor Of Communication Relationship Specialty Start Date End Date Paras Lopez MD PCP - General Family Practice 03/09/12 Associate Professor Of Communication Relationship Specialty Start Date End Date Paras Lopez MD PCP - General Family Medicine 03/09/12 Associate Professor Of Communication Relationship Specialty Start Date End Date Paras Lopez MD PCP - General Family Medicine 03/09/12 Associate Professor Of Communication Relationship Specialty Start Date End Date Paras Lopez MD PCP - General Family Medicine 03/09/12 Associate Professor Of Communication Relationship Specialty Start Date End Date Paras Lopez MD PCP - General Family Medicine 03/09/12 Associate Professor Of Communication Relationship Specialty Start Date End Date Paras Lopez MD PCP - General Family Medicine 03/09/12 Associate Professor Of Communication Relationship Specialty Start Date End Date Paras Lopez MD PCP - General Family Medicine 03/09/12 Associate Professor Of Communication Relationship Specialty Start Date End Date Paras Lopez MD PCP - General Family Medicine 6/15/12 Associate Professor Of Communication Relationship Specialty Start Date End Date Paras Lopez MD PCP - General Family Medicine 03/09/12 Associate Professor Of Communication Relationship Specialty Start Date End Date Paras Lopez MD PCP - General Family Medicine 03/09/12 Associate Professor Of Communication Relationship Specialty Start Date End Date Paras Lopez MD PCP - General Family Medicine 03/09/12 FOR RECORDS PERTAINING TO PATIENTS WHO ARE OR HAVE BEEN ENROLLED IN A CHEMICAL DEPENDENCY/SUBSTANCEABUSE PROGRAM, SOME INFORMATION MAY BE OMITTED. This clinical summary was aggregated from multiple sources. Caution should be exercised in using it in the provision of clinical care. This summary normalizes information from multiple sources, and as a consequence, information in this document may materially change the coding, format and clinical context of patient data. In addition, data may be omitted in some cases. CLINICAL DECISIONS SHOULD BE BASED ON THE PRIMARY CLINICAL RECORDS. [facility] [employer] [facility]. provides no warranty or guarantee of the accuracy or completeness of information in this document.
[2023-11-02 16:43] LABS: Troponin-I HS 5 pg/mL (3.0-78.0)
== END 2023-11-02 18:48 | disposition home or self-care (01) ==
PROVIDERS: Emergency Provider Student in an Organized Health Care Education/Training Program; PCP Family Medicine; Visit Provider Student in an Organized Health Care Education/Training Program
DX: R07.9 Chest pain, unspecified (principal); R06.00 Dyspnea, unspecified; E78.5 Hyperlipidemia, unspecified; I25.2 Old myocardial infarction; Z79.82 Long term (current) use of aspirin; Z79.899 Other long term (current) drug therapy; Z95.5 Presence of coronary angioplasty implant and graft
CPT/HCPCS: 71045; 80048; 84484; 85025; 93005; 96374; 96375; 99283; A4216; J2405